=== PATIENT | male | born 1975 | race Two or more races ===

== ENCOUNTER 2020-03-11 14:51 | Emergency (ER) | payer OTHER, SELFPAY ==
--- NOTE | 2020-03-11 | XR_ITS ---
EXAMINATION: XR ANKLE, RIGHT CLINICAL INFORMATION: Injury right ankle, pain COMPARISON: None TECHNIQUE: AP, lateral, and mortise views of the right ankle. FINDINGS: The malleoli are intact and the ankle mortise is symmetric. There is no dislocation or destructive process. The AP view shows faint osseous density adjacent to the lateral talar neck which of uncertain chronicity. Possibility of acute avulsion cannot be excluded. The talus is otherwise unremarkable. The subtalar joint is normal. There is moderate posterior calcaneal spur and some minor spurring at the articulation between the navicular and the cuneiforms. XR/XR ankle RT 2V IMPRESSION: 1. Malleoli are intact. No dislocation. 2. Faint density adjacent to lateral talar neck on one view of uncertain chronicity. Possibility of acute avulsion cannot be completely excluded and correlation with patient's symptoms and clinical exam is recommended.
[2020-03-11 15:48] VITALS: BP 146/86; PULSE 84; RESP 16; TEMP 37.4; O2SAT 98; BMI 28.5
--- NOTE | 2020-03-11 15:54 | ED.LOWEXIN ---
HPI - Extremity Injury (Lower) General Chief Complaint: Extremity Injury, Lower Stated Complaint: rt ankle injury - fall Time Seen by Provider: 03/11/20 15:54 Source: patient Mode of arrival: ambulatory Limitations: no limitations History of Present Illness HPI Narrative: 44 y/o male presenting with right ankle pain x1 day. He reports his dog knocked him over and his ankle went outward. He has immediate pain and swelling. He is able to walk but with a limp. He denies other injuries. MD complaint: ankle injury Injury: Right: ankle and foot Type of Injury: eversion Place: home Severity: severe Severity scale (1-10): 8 Relieving factors: nothing Exacerbating factors: weight bearing, movement and palpation Context: fall and walking Associated symptoms: swelling and able to partially bear weight Other symptoms: none Treatments prior to arrival: NSAIDS Related Data Previous Rx's Medication Instructions Recorded methylprednisolone 4 mg tablets in See Rx Instructions PO PER PKG DIR 01/10/20 a dose pack #21 ea hydrocodone-acetaminophen [[place]] 1 tab PO Q6H PRN #10 tab 03/11/20 ibuprofen 600 mg PO Q8H PRN #20 tab 03/11/20 Allergies Allergy/AdvReac Type Severity Reaction Status Date / Time azithromycin [From ZITHROMAX] Allergy Intermediate HIVES Unverified 12/14/19 16:09 losartan [LOSARTAN] Allergy Intermediate RASH Unverified 12/14/19 16:09 penicillin V Allergy Unknown Verified 08/28/19 00:00 Penicillins [PENICILLINS] Allergy Unknown CHILDHOOD Unverified 12/14/19 16:09 REACTION vancomycin Allergy Unknown rash Verified 01/31/13 00:00 Losartan ARBs Allergy Unknown Rash Uncoded 08/28/19 00:00 PCN Allergy Unknown ? Uncoded 01/31/13 00:00 Review of Systems Review of Systems: Constitutional: No Fever, No Chills Cardiovascular: No Chest Pain, No SOB Respiratory: No Cough, No Sputum Gastrointestinal: No Nausea, No Vomiting, No abdominal Pain Musculoskeletal: + joint pain, No Myalgias Skin: No Skin Lesions, No rash Neuro: + Weakness, No Numbness, No Dizziness Heme/Lymph: No Bruising PMFSH Past Medical History Attestation statement: The following information was validated with the patient. Medical History HTN (hypertension) Surgical History (Updated 03/11/20 @ 15:50 by Verito Pratt) H/O inguinal hernia repair Social History Social History Advance Directives: No Advance Directives Information Provided: No Physical Exam Vital Signs: Vital Signs: Last Vital Signs Temp 99.3 F 03/11/20 15:48 Pulse 84 03/11/20 15:48 Resp 16 03/11/20 15:48 BP 146/86 H 03/11/20 15:48 Pulse Ox 98 03/11/20 15:48 Body Mass Index 28.5 Appearance: Alert. Oriented X3. No acute distress. HEENT: normal inspection CVS: Normal heart rate and rhythm. Pulses normal. Respiratory: No respiratory distress. Skin: Skin warm and dry. Normal skin color. Normal skin turgor. No rashes. Extremities: right ankle and upper foot with swelling, no ecchymosis or deformity. Tenderness to lateral malleolus and proximal lateral tarsals. weak plantar flexion and dorsiflexion due to pain. NV intact distally. Course Course Course Narrative: 44 yo male presenting with right ankle and foot pain after fall yesterday. Initial XR shows 1. Malleoli are intact. No dislocation. 2. Faint density adjacent to lateral talar neck on one view of uncertain chronicity. Possibility of acute avulsion cannot be completely excluded and correlation with patient's symptoms and clinical exam is recommended. Additional images to be obtained with foot XR as well. Reevaluation(s) Reevaluation #1: XR foot are normal. Will place in posterior short leg splint until patient can be evaluated by orthopedics. NWB status discussed with patient. Discharge Plan Discharge Clinical Impression: Avulsion fracture of ankle Qualifiers: Encounter type: initial encounter Fracture type: closed Laterality: right Qualified Code(s): S82.891A - Other fracture of right lower leg, initial encounter for closed fracture Patient Disposition: Home, Self-Care Instructions: Avulsion Fracture (ED) Additional Instructions: Your x-ray today showed an avulsion fracture, which is when a torn ligament pulls off a small part of the bone. You were placed in splint and should not put any weight on your foot until you are evaluated by Orthopedics. Elevated your leg when possible to help with swelling and pain. Take prescribed medication as needed for pain. Prescriptions: New ibuprofen 600 mg tablet 600 mg PO Q8H PRN (Reason: pain) Qty: 20 RF: 0 hydrocodone-acetaminophen [[place]] 5-325 mg tablet 1 tab PO Q6H PRN (Reason: pain) Qty: 10 RF: 0 No Action methylprednisolone [Medrol (Michael)] 4 mg tablets,dose pack See Rx Instructions PO PER PKG DIR Qty: 21 RF: 0 Referrals: Mayito Schumacher MD [Physician] - 2 days (avulsion fx ankle ) Stand Alone Forms: Work/School Release
--- NOTE | 2020-03-11 16:44 | XR_ITS ---
EXAMINATION: RIGHT FOOT 3 VIEWS CLINICAL INFORMATION: Pain following injury. COMPARISON: None. TECHNIQUE: AP, lateral, oblique views of the right foot were obtained. FINDINGS: There are no fractures or dislocations. There is no significant soft tissue swelling. No ankle joint effusion is identified. XR/XR foot RT min 3V IMPRESSION: Unremarkable right foot radiographs.
[2020-03-11] MEDS: oxyCODONE HCl Immed Release 5 MG TABLET PO (17:05)
[2020-03-11] MEDS: Ibuprofen 600 MG TABLET PO (17:05)
[2020-03-11] MEDS: Acetaminophen 325 MG TABLET 975 MG PO (17:06)
--- NOTE | 2020-03-11 18:07 | PC.NURSE ---
PLAN POSTERIOR SHORT LEG SPLINT AND CRUTCHES THEN DISCHARGE.
--- NOTE | 2020-03-11 18:25 | PC.NURSE ---
RIGHT POSTERIOR SHORT LEG SPLINT APPLIED.
== END 2020-03-11 18:20 | disposition home or self-care (01) ==
PROVIDERS: Emergency Provider Emergency Medicine; PCP Internal Medicine
DX: S92.114A Nondisplaced fracture of neck of right talus, initial encounter for closed fracture (principal); W54.1XXA Struck by dog, initial encounter; Y93.89 Activity, other specified; Y92.019 Unspecified place in single-family (private) house as the place of occurrence of the external cause; Y99.9 Unspecified external cause status
CPT/HCPCS: 29515; 73600; 73630; 99283; 99284

== ENCOUNTER → 2020-03-12 13:30 | Outpatient (BNVA) | payer OTHER, BC, SELFPAY | PROVIDERS: PCP Internal Medicine; Visit Provider Physician Assistant | DX: Z76.89 Persons encountering health services in other specified circumstances (principal) ==

== ENCOUNTER 2020-03-18 04:56 | Emergency (ER) | payer BC, SELFPAY ==
[2020-03-18 04:58] VITALS: BP 167/80; PULSE 105; RESP 20; TEMP 36.6; O2SAT 96; BMI 28.5
--- NOTE | 2020-03-18 05:16 | ED_ITS ---
HPI - Male Genitourinary General Chief complaint: Urogenital-Male Stated complaint: Personal Time Seen by Provider: 03/18/20 05:16 Source: patient Mode of arrival: ambulatory Limitations: no limitations History of Present Illness HPI Narrative: Patient had a small boil on scrotum which he popped 2 days ago now increasing swelling of the scrotum patient has similar boil on same location for long time off and on patient denies any fever no penile discharge no history of MRSA Related Data Home Medications Medication Instructions Recorded Confirmed triamcinolone acetonide 1 appl TOPICAL BID 03/18/20 03/18/20 Previous Rx's Medication Instructions Recorded methylprednisolone 4 mg tablets in See Rx Instructions PO PER PKG DIR 01/10/20 a dose pack #21 ea hydrocodone-acetaminophen [[place]] 1 tab PO Q6H PRN #10 tab 03/11/20 ibuprofen 600 mg PO Q8H PRN #20 tab 03/11/20 cephalexin [Keflex] 500 mg PO QID 10 Days #40 cap 03/18/20 doxycycline hyclate 100 mg PO BID #20 cap 03/18/20 ibuprofen 600 mg PO Q6H PRN #20 tab 03/18/20 Allergies Allergy/AdvReac Type Severity Reaction Status Date / Time azithromycin [From ZITHROMAX] Allergy Intermediate HIVES Verified 03/18/20 04:58 losartan [LOSARTAN] Allergy Intermediate RASH Verified 03/18/20 04:58 penicillin V Allergy Unknown Rash Verified 03/18/20 04:58 Penicillins [PENICILLINS] Allergy Unknown CHILDHOOD Verified 03/18/20 04:58 REACTION vancomycin Allergy Unknown rash Verified 03/18/20 04:58 Losartan ARBs Allergy Unknown Rash Uncoded 08/28/19 00:00 PCN Allergy Unknown ? 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 Physical Exam Vital Signs: Vital Signs: Last Vital Signs Temp 98 F 03/18/20 04:58 Pulse 105 H 03/18/20 04:58 Resp 20 03/18/20 04:58 BP 167/80 H 03/18/20 04:58 Pulse Ox 96 03/18/20 04:58 Body Mass Index 28.5 Const: General: cooperative, healthy appearing and in distress mild HENMT: Ears: hearing grossly normal bilaterally : Scrotum: erythematous and testes descended bilaterally Skin: Other: 2 x 3 cm Abscess left scrotal area at the upper and with the duration and cellulitis of the scrotal wall no open wound testicles are normal nontender Procedures Abscess I/D Site: scrotum Side (if applicable): left Local Anesthetic: lidocaine 2% Amount of anesthesia used (mL): 4 Technique: incised with blade Amount of fluid expressed (mL): 0 Sent for culture/gram staining?: No Irrigation: No Packing used?: none MDM - Male Genitourinary MDM Narrative Medical decision making narrative: Patient with chronic abscess left upper scrotal area with surrounding cellulitis I and D was tried but no pus came out will give him antibiotics advised to follow with urologist for cyst removal Discharge Plan Discharge Clinical Impression: Abscess of scrotal wall Patient Disposition: Home, Self-Care Instructions: Abscess Incision and Drainage (DC) Additional Instructions: Local care as advised. Take antibiotic as prescribed. Follow-up with urologist for further care Prescriptions: New doxycycline hyclate 100 mg capsule 100 mg PO BID Qty: 20 RF: 0 cephalexin [Keflex] 500 mg capsule 500 mg PO QID 10 Days Qty: 40 RF: 0 ibuprofen 600 mg tablet 600 mg PO Q6H PRN (Reason: pain) Qty: 20 RF: 0 No Action methylprednisolone [Medrol (Michael)] 4 mg tablets,dose pack See Rx Instructions PO PER PKG DIR Qty: 21 RF: 0 ibuprofen 600 mg tablet 600 mg PO Q8H PRN (Reason: pain) Qty: 20 RF: 0 hydrocodone-acetaminophen [[place]] 5-325 mg tablet 1 tab PO Q6H PRN (Reason: pain) Qty: 10 RF: 0 triamcinolone acetonide 0.5 % cream 1 appl topical BID RF: 0 Referrals: Swierzewski,Luis M III, MD [Physician] - 3 days (Scrotal abscess) Interventions: ED Discharge Assessment Last Done: 03/18/20 05:36 Discharge Date/Time: 03/18/20 05:40
[2020-03-18] MEDS: Lidocaine HCl 2 % MPF 5 ML VIAL INFILTRATI (05:24)
[2020-03-18] MEDS: cephALEXin 500 MG CAPSULE PO (05:25)
--- NOTE | 2020-03-18 05:40 | PC.NURSE ---
i &D scrotal wall cyst. No drainage. Patient referred to urologist for further follow up. Patient tolerated the procedure well. Medicated with abx as noted on emar.
== END 2020-03-18 05:40 | disposition home or self-care (01) ==
PROVIDERS: Emergency Provider Internal Medicine; PCP Internal Medicine
DX: N49.2 Inflammatory disorders of scrotum (principal); I10 Essential (primary) hypertension; F17.210 Nicotine dependence, cigarettes, uncomplicated
CPT/HCPCS: 55100; 99283

== ENCOUNTER → 2020-03-20 09:08 | Outpatient (BNVA) | payer BC, SELFPAY | PROVIDERS: PCP Internal Medicine; Visit Provider Urology | DX: Z76.89 Persons encountering health services in other specified circumstances (principal) ==

== ENCOUNTER → 2020-03-27 09:48 | Outpatient (BNVA) | payer BC, SELFPAY | PROVIDERS: PCP Internal Medicine; Visit Provider Urology | DX: N49.2 Inflammatory disorders of scrotum (principal) | CPT/HCPCS: 81002 ==

== ENCOUNTER 2020-04-02 13:37 | Outpatient (REF) | payer BC, SELFPAY | END 2020-04-02 13:38 | disposition home or self-care (01) | LOC: HO.HOSX 13:37 | PROVIDERS: Visit Provider Physician Assistant | DX: Z13.89 Encounter for screening for other disorder (principal) ==

== ENCOUNTER 2020-06-07 14:09 | Emergency (ER) | payer BC, SELFPAY ==
--- NOTE | ~2020-06-07 | XR_ITS ---
EXAMINATION: XR FOOT, RIGHT CLINICAL INFORMATION: Foot injury COMPARISON: Right foot series February 2020 TECHNIQUE: AP, lateral, and oblique views of the right foot. FINDINGS: There is soft tissue swelling noted along the dorsal aspect of the foot. The bones joints and soft tissues are otherwise normal. XR/XR foot RT min 3V IMPRESSION: Normal right foot.
[2020-06-07 14:17] VITALS: BP 142/71; PULSE 96; RESP 18; TEMP 36.6; O2SAT 96; BMI 28.5
--- NOTE | 2020-06-07 14:51 | ED.LOWEXIN ---
HPI - Extremity Injury (Lower) General Chief Complaint: Extremity Injury, Lower Stated Complaint: foot injury Time Seen by Provider: 06/07/20 14:24 Source: patient Mode of arrival: ambulatory Limitations: no limitations History of Present Illness HPI Narrative: 44-year-old male with a past medical history of hypertension presenting to the ED with complaints of pain to his right foot after he dropped a weight a few days ago worsening pain today 12/06. Reports he also had an abscess and when the weight fell on it it popped the abscess. Denies any other symptoms complaints or concerns at this time. MD complaint: foot injury Onset (ago): day(s) (A few days ago worse today) Type of Injury: blunt Place: home Severity: severe Severity scale (1-10): 9 Relieving factors: nothing Exacerbating factors: weight bearing, movement and palpation Context: direct blow Associated symptoms: swelling and ambulatory Other symptoms: none Treatments prior to arrival: other (Multiple [id number] medication no symptomatic relief) Related Data Home Medications Medication Instructions Recorded Confirmed triamcinolone acetonide 1 appl TOPICAL BID 03/18/20 03/27/20 Previous Rx's Medication Instructions Recorded methylprednisolone 4 mg tablets in See Rx Instructions PO PER PKG DIR 01/10/20 a dose pack #21 ea hydrocodone-acetaminophen [[place]] 1 tab PO Q6H PRN #10 tab 03/11/20 ibuprofen 600 mg PO Q8H PRN #20 tab 03/11/20 cephalexin [Keflex] 500 mg PO QID 10 Days #40 cap 03/18/20 doxycycline hyclate 100 mg PO BID #20 cap 03/18/20 ibuprofen 600 mg PO Q6H PRN #20 tab 03/18/20 leg brace #1 ea 03/20/20 sulfamethoxazole 800 1 tab PO BID #30 tab 03/20/20 mg-trimethoprim 160 mg tablet diphenhydramine HCl [Benadryl 50 mg PO TID PRN #10 tab 06/07/20 Allergy] doxycycline hyclate 100 mg PO BID 10 Days #20 tab 06/07/20 ibuprofen 800 mg PO Q8H PRN #14 tab 06/07/20 oxycodone 5 mg PO BID PRN #14 tab 06/07/20 sulfamethoxazole-trimethoprim 1 tab PO BID 10 Days #20 tab 06/07/20 [Bactrim DS] Allergies Allergy/AdvReac Type Severity Reaction Status Date / Time azithromycin [From ZITHROMAX] Allergy Intermediate HIVES Verified 03/27/20 10:10 losartan [LOSARTAN] Allergy Intermediate RASH Verified 03/27/20 10:10 penicillin V Allergy Unknown Rash Verified 03/27/20 10:10 Penicillins [PENICILLINS] Allergy Unknown CHILDHOOD Verified 03/27/20 10:10 REACTION vancomycin Allergy Unknown rash Verified 03/27/20 10:10 Losartan ARBs Allergy Unknown Rash Uncoded 03/27/20 10:10 PCN Allergy Unknown ? Uncoded 03/27/20 10:10 Review of Systems Review of Systems: Constitutional : No fevers, no chills, no lethargy ENT/Mouth : No Ear Pain, No Nasal discharge/drainage Eyes: No Eye Pain, No Swelling, No Redness, No Foreign Body, No Vision Changes Cardiovascular : No Chest Pain, No SOB Respiratory : No Cough Gastrointestinal : No Nausea, No Vomiting, No abdominal Pain Genitourinary : No Dysuria, No Urinary Frequency, No Urinary Incontinence, No Urgency, No Flank Pain Musculoskeletal : + joint pain, No neck stiffness, No back pain/injury Skin : No lacerations Neuro : No unsteady gait, No Paresthesias, No Loss of Consciousness, No altered mental status, No Headache Yes all other systems are reviewed and are negative [facility] Past Medical History Attestation statement: The following information was validated with the patient. 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 Blood pressure normal. Heart rate normal. Respiration rate normal. Temperature normal. Oxygen saturation normal. Appearance: Alert. Oriented X3. No acute distress. Head: Normal external exam. Normocephalic. Atraumatic. Eyes: PERRLA. EOMI. Conjunctiva and sclera normal. Eyelids normal. ENT: Pharynx normal. Uvula midline. Moist mucous membranes. Neck: Normal inspection. Neck supple. FROM. No adenopathy. Thyroid Normal. No meningeal signs. No neck mass noted. CVS: Normal heart rate and rhythm. Heart sound normal. Pulses normal throughout. Respiratory: No respiratory distress. Painless inspiration. Back: No CVA tenderness. Full range of motion noted. Skin: Skin warm and dry. Normal skin color. Normal skin turgor. No rashes/lesions/lacerations noted. Extremities: To right foot dorsal aspect patient has moderate soft tissue swelling with ecchymosis and erythema to the metatarsal aspect of the foot. Patient also noted to have a wound to the mid to distal aspect of the foot with warm to touch, erythema consistent with cellulitis infection. No fluctuance or foreign bodies noted. See below for image. No lower extremity edema. No calf tenderness noted. Extremities exhibit normal range of motion. Extremities nontender. Neuro: Oriented X 3. No motor deficit. No sensory deficit. Reflexes normal. Course Course Course Narrative: 44-year-old male past medical history of hypertension presenting to the ED after he dropped weight on his right foot and since then has been having moderate pain able to ambulate although pain is worse. On exam patient noted to have moderate soft tissue swelling, ecchymosis and erythema along with warm to touch consistent with sprain and cellulitis infection from wound. Not consistent with osteomyelitis. X-ray obtained of right foot negative for any acute processes including fractures. Will DC home with a postop shoe and symptomatic treatment along with antibiotics and instructions return if any new or worsening symptoms to follow up with primary care provider. Patient understands agrees the plan. MDM - Extremity Injury (Lower) Medical Records Attestation: I reviewed the patient's medical records. Imaging Data Right foot x-ray: Attestation: I personally reviewed and interpreted this imaging study as follows: Radiologist's impression: FINDINGS: There is soft tissue swelling noted along the dorsal aspect of the foot. The bones joints and soft tissues are otherwise normal. XR/XR foot RT min 3V IMPRESSION: Normal right foot. Discharge Plan Discharge Clinical Impression: Cellulitis of foot, right, Sprain of foot, right, Traumatic ecchymosis of right foot, Open wound of right foot Patient Disposition: Home, Self-Care Instructions: Cellulitis (ED), Ecchymosis (ED) Prescriptions: New doxycycline hyclate 100 mg tablet 100 mg PO BID 10 Days Qty: 20 RF: 0 sulfamethoxazole-trimethoprim [Bactrim DS] 800-160 mg tablet 1 tab PO BID 10 Days Qty: 20 RF: 0 oxycodone 5 mg tablet 5 mg PO BID PRN (Reason: pain) Qty: 14 RF: 0 diphenhydramine HCl [Benadryl Allergy] 25 mg tablet 50 mg PO TID PRN (Reason: allergic reaction) Qty: 10 RF: 0 ibuprofen 800 mg tablet 800 mg PO Q8H PRN (Reason: pain) Qty: 14 RF: 0 No Action methylprednisolone [Medrol (Michael)] 4 mg tablets,dose pack See Rx Instructions PO PER PKG DIR Qty: 21 RF: 0 ibuprofen 600 mg tablet 600 mg PO Q8H PRN (Reason: pain) Qty: 20 RF: 0 hydrocodone-acetaminophen [[place]] 5-325 mg tablet 1 tab PO Q6H PRN (Reason: pain) Qty: 10 RF: 0 doxycycline hyclate 100 mg capsule 100 mg PO BID Qty: 20 RF: 0 cephalexin [Keflex] 500 mg capsule 500 mg PO QID 10 Days Qty: 40 RF: 0 ibuprofen 600 mg tablet 600 mg PO Q6H PRN (Reason: pain) Qty: 20 RF: 0 triamcinolone acetonide 0.5 % cream 1 appl topical BID RF: 0 (DME) Ankle Brace Misc See Rx Instructions .MEDSUPPLY Qty: 1 RF: 0 sulfamethoxazole-trimethoprim [Bactrim DS] 800-160 mg tablet 1 tab PO BID Qty: 30 RF: 1 Referrals: Reggie Talamantes MD [Primary Care Provider] - 2 days Print Language: Hungarian
== END 2020-06-07 15:12 | disposition home or self-care (01) ==
PROVIDERS: Emergency Provider Emergency Medicine Emergency Medical Services; PCP Internal Medicine
DX: L03.115 Cellulitis of right lower limb (principal); S93.601A Unspecified sprain of right foot, initial encounter; S91.301A Unspecified open wound, right foot, initial encounter; S90.31XA Contusion of right foot, initial encounter; W20.8XXA Other cause of strike by thrown, projected or falling object, initial encounter; I10 Essential (primary) hypertension; Y93.B3 Activity, free weights; Y92.019 Unspecified place in single-family (private) house as the place of occurrence of the external cause; Y99.9 Unspecified external cause status
CPT/HCPCS: 73630; 99283

== ENCOUNTER 2020-06-16 19:38 | Emergency (ER) | payer BC, SELFPAY ==
[2020-06-16 21:18] VITALS: BP 146/87; PULSE 87; RESP 16; TEMP 36.7; O2SAT 97; BMI 29.1
--- NOTE | 2020-06-16 21:53 | ED.GENADULT ---
HPI - General Adult General Chief complaint: Allergic Reaction Stated complaint: MED REACTION Time Seen by Provider: 06/16/20 21:42 Source: patient Mode of arrival: ambulatory Limitations: no limitations History of Present Illness HPI narrative: Patient comes emergency room complaining of a rash around his neck and hands. Patient states that he has been on doxycycline and Bactrim since 06/08/2019 1st. For a foot infection. Patient states the foot is healing well. However, he still has an area that it is healing. Patient states that he is compliant with his medication, but today he was working out in the sun, and he got a very itchy rash in the sun-exposed areas of his body including face, scalp, neck and hands. Patient states he has been noticing for the last few days ago when he gets exposed to son, he has this intermittent rash. Patient denies shortness of breath, no wheezing, no foreign body sensation in his throat, does not have rash anywhere else in his body Related Data Home Medications Medication Instructions Recorded Confirmed triamcinolone acetonide 1 appl TOPICAL BID 03/18/20 03/27/20 Previous Rx's Medication Instructions Recorded methylprednisolone 4 mg tablets in See Rx Instructions PO PER PKG DIR 01/10/20 a dose pack #21 ea hydrocodone-acetaminophen [[place]] 1 tab PO Q6H PRN #10 tab 03/11/20 ibuprofen 600 mg PO Q8H PRN #20 tab 03/11/20 cephalexin [Keflex] 500 mg PO QID 10 Days #40 cap 03/18/20 doxycycline hyclate 100 mg PO BID #20 cap 03/18/20 ibuprofen 600 mg PO Q6H PRN #20 tab 03/18/20 leg brace #1 ea 03/20/20 sulfamethoxazole 800 1 tab PO BID #30 tab 03/20/20 mg-trimethoprim 160 mg tablet diphenhydramine HCl [Benadryl 50 mg PO TID PRN #10 tab 06/07/20 Allergy] doxycycline hyclate 100 mg PO BID 10 Days #20 tab 06/07/20 ibuprofen 800 mg PO Q8H PRN #14 tab 06/07/20 oxycodone 5 mg PO BID PRN #14 tab 06/07/20 sulfamethoxazole-trimethoprim 1 tab PO BID 10 Days #20 tab 06/07/20 [Bactrim DS] clindamycin HCl 300 mg PO BID 7 Days #14 cap 06/16/20 Allergies Allergy/AdvReac Type Severity Reaction Status Date / Time azithromycin [From ZITHROMAX] Allergy Intermediate HIVES Verified 06/16/20 21:22 losartan [LOSARTAN] Allergy Intermediate RASH Verified 06/16/20 21:22 penicillin V Allergy Unknown Rash Verified 06/16/20 21:22 Penicillins [PENICILLINS] Allergy Unknown CHILDHOOD Verified 06/16/20 21:22 REACTION vancomycin Allergy Unknown rash Verified 06/16/20 21:22 Losartan ARBs Allergy Unknown Rash Uncoded 03/27/20 10:10 PCN Allergy Unknown ? Uncoded 03/27/20 10:10 Review of Systems Review of Systems: Constitutional : No Weight loss, No Fever, No Chills, No Night Sweats, No Fatigue, No Malaise ENT/Mouth : No Hearing loss, No Ear Pain, No Nasal Congestion, No Sinus Pain, No Hoarseness, No sore throat, No Rhinorrhea, No Swallowing Difficulty Eyes: No Eye Pain, No Swelling, No Redness, No Foreign Body, No Discharge, No Vision Changes Cardiovascular : No Chest Pain, No SOB, No Dyspnea on Exertion, No Orthopnea, No Edema, No Palpitations Respiratory : No Cough, No Sputum, No Wheezing, No Smoke Exposure, No Dyspnea Gastrointestinal : No Nausea, No Vomiting, No Diarrhea, No Constipation, No abdominal Pain, No Hematochezia, No Melena Genitourinary : no irregular bleeding, No Dysuria, No Urinary Frequency, No Hematuria, No Urinary Incontinence, No Urgency, No Flank Pain, No Urinary Flow Changes, No Hesitancy Musculoskeletal : No joint pain, No Myalgias, No Joint Swelling Skin : Complaining of itchy rash in sun-exposed areas, and a healing cyst/cellulitis in the right foot Neuro : No Weakness, No Numbness, No Paresthesias, No Loss of Consciousness, No Dizziness, No Headache Psych : No Anxiety/Panic, No Depression, No SI/HI/AH/VH, No Social Issues, Heme/Lymph: No Bruising, No Bleeding,No Lymphadenopathy Endocrine : No Polyuria, No Polydipsia, No Temperature Intolerance PMFSH Past Medical History Medical History Cellulitis of scrotum HTN (hypertension) Scrotal wall abscess Surgical History H/O inguinal hernia repair Family History Family History Maternal Grandfather Stroke Maternal Grandmother Stroke Social History Social History Alcohol intake: current Alcohol intake frequency: a few times a week Smoking Status: Current every day smoker Tobacco Type: Cigarette Advance Directives: No Advance Directives Information Provided: No 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 Oriented X3. No acute distress. Eyes: Pupils equal, round and reactive to light. ENT: Pharynx normal. Neck: Normal inspection. Neck supple. No lymph nodes noted. No crepitus CVS: Normal heart rate and rhythm. Pulses normal. Normal S1 and S2 Respiratory: No respiratory distress. Breath sounds normal. No Wheezing. No rales Abdomen: Soft and nontender. No rigidity. No distention. good BS x4 Skin: Skin warm and dry. Patient has hives in the scalp, face, neck and hands (sun-exposed areas). Right foot seems to be healing, he has a patch approximately 2.5 cm x 2.5 cm of an ulcer on the dorsum of the right foot, seems to be healing. Extremities: No lower extremity edema. No lower extremity edema. No Lacerations. No Rash Neuro: Oriented X 3. No motor deficit. No sensory deficit. Moving all extermities. No slurred speech. Course Course Course Narrative: I discussed with the patient that this is unlikely to be an allergic reaction to the antibiotics. However it is likely hypersensitivity reaction from the antibiotics and the sun. Patient was given a dose of prednisone and Benadryl. His will be driving. In the meantime, we will switch the patient's antibiotics, advised to stay out of the sun. Patient can follow-up with his primary care physician, he may need a scratch test to be tested for allergic reactions to antibiotics. Patient is known to be allergic to azithromycin, penicillins, now possibly doxycycline versus Bactrim. Allergy tested recommended Discharge Plan Discharge Clinical Impression: Hypersensitivity Qualifiers: Encounter type: initial encounter Qualified Code(s): T78.40XA - Allergy, unspecified, initial encounter Cellulitis Qualifiers: Site of cellulitis: extremity Site of cellulitis of extremity: lower extremity Laterality: right Qualified Code(s): L03.115 - Cellulitis of right lower limb Patient Disposition: Home, Self-Care Instructions: Acute Rash (ED) Additional Instructions: Discontinue taking Bactrim and doxycycline. Start taking the new medication tomorrow. Please follow-up with your primary care physician tomorrow. If you have any worsening or new symptoms, please return to the emergency room or call 911 Prescriptions: New clindamycin HCl 300 mg capsule 300 mg PO BID 7 Days Qty: 14 RF: 0 No Action methylprednisolone [Medrol (Michael)] 4 mg tablets,dose pack See Rx Instructions PO PER PKG DIR Qty: 21 RF: 0 ibuprofen 600 mg tablet 600 mg PO Q8H PRN (Reason: pain) Qty: 20 RF: 0 hydrocodone-acetaminophen [[place]] 5-325 mg tablet 1 tab PO Q6H PRN (Reason: pain) Qty: 10 RF: 0 doxycycline hyclate 100 mg capsule 100 mg PO BID Qty: 20 RF: 0 cephalexin [Keflex] 500 mg capsule 500 mg PO QID 10 Days Qty: 40 RF: 0 ibuprofen 600 mg tablet 600 mg PO Q6H PRN (Reason: pain) Qty: 20 RF: 0 triamcinolone acetonide 0.5 % cream 1 appl topical BID RF: 0 doxycycline hyclate 100 mg tablet 100 mg PO BID 10 Days Qty: 20 RF: 0 sulfamethoxazole-trimethoprim [Bactrim DS] 800-160 mg tablet 1 tab PO BID 10 Days Qty: 20 RF: 0 oxycodone 5 mg tablet 5 mg PO BID PRN (Reason: pain) Qty: 14 RF: 0 diphenhydramine HCl [Benadryl Allergy] 25 mg tablet 50 mg PO TID PRN (Reason: allergic reaction) Qty: 10 RF: 0 ibuprofen 800 mg tablet 800 mg PO Q8H PRN (Reason: pain) Qty: 14 RF: 0 (DME) Ankle Brace Misc See Rx Instructions .MEDSUPPLY Qty: 1 RF: 0 sulfamethoxazole-trimethoprim [Bactrim DS] 800-160 mg tablet 1 tab PO BID Qty: 30 RF: 1
[2020-06-16] MEDS: predniSONE 20 MG TABLET 60 MG PO (22:29)
[2020-06-16] MEDS: diphenhydrAMINE HCL 25 MG TABLET 50 MG PO (22:29)
== END 2020-06-16 22:38 | disposition home or self-care (01) ==
PROVIDERS: Emergency Provider Emergency Medicine; PCP Internal Medicine
DX: L27.0 Generalized skin eruption due to drugs and medicaments taken internally (principal); T36.4X5A Adverse effect of tetracyclines, initial encounter; Y92.017 Garden or yard in single-family (private) house as the place of occurrence of the external cause; L03.115 Cellulitis of right lower limb; I10 Essential (primary) hypertension
CPT/HCPCS: 99283; Q0163

== ENCOUNTER 2021-08-16 09:39 | Emergency (ER) | payer BC, SELFPAY ==
[2021-08-16 10:35] VITALS: BP 152/93; PULSE 86; RESP 18; TEMP 36.6; O2SAT 98; BMI 29.1
--- NOTE | 2021-08-16 10:45 | ED_ITS ---
HPI - Extremity Problem General Chief complaint: Extremity Injury, Upper Stated complaint: cyst on L elbow Time Seen by Provider: 08/16/21 10:42 Source: patient Mode of arrival: ambulatory Limitations: no limitations History of Present Illness HPI Narrative: 38-year-old male presents to the ER with left elbow swelling after some mild trauma 2 weeks ago. He reports after he banged his elbow on something he develo ped states a significant swollen area to his left elbow he thinks is a cyst. He wants it removed. He has full range of motion of the elbow without any redness or overlying skin changes. No fever or chills. MD Complaint: joint swelling Onset (ago): week(s) (2) Pain Consistency: constant Location: left and elbow Severity scale (1-10): 2 Quality: aching Radiation: none Relieving factors: nothing Exacerbating factors: palpation Associated symptoms: denies other symptoms Related Data Home Medications Medication Instructions Recorded Confirmed No Known Home Meds 08/16/21 Allergies Allergy/AdvReac Type Severity Reaction Status Date / Time azithromycin [From ZITHROMAX] Allergy Intermediate HIVES Verified 08/16/21 09:13 losartan [LOSARTAN] Allergy Intermediate RASH Verified 08/16/21 09:13 penicillin V Allergy Unknown Rash Verified 08/16/21 09:13 Penicillins [PENICILLINS] Allergy Unknown CHILDHOOD Verified 08/16/21 09:13 REACTION vancomycin Allergy Unknown rash Verified 08/16/21 09:13 Losartan ARBs Allergy Unknown Rash Uncoded 08/16/21 09:13 PCN Allergy Unknown ? Uncoded 08/16/21 09:13 Review of Systems Review of Systems: Constitutional: No Fever, No Chills Cardiovascular: No Chest Pain, No SOB Gastrointestinal: No Nausea, No Vomiting, No abdominal Pain Musculoskeletal: +joint pain, No Myalgias, +Joint swelling Skin: No Skin Lesions, No rash Neuro: No Weakness, No Numbness Heme/Lymph: No Bruising, No Lymphadenopathy PMFSH Past Medical History Medical History Cellulitis of scrotum HTN (hypertension) Scrotal wall abscess Surgical History H/O inguinal hernia repair Family History Family History Maternal Grandfather Stroke Maternal Grandmother Stroke Social History Social History Alcohol intake: current Alcohol intake frequency: a few times a week Advance Directives: No Advance Directives Information Provided: No 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 Oriented X3. No acute distress. HEENT: normal inspection CVS: Normal heart rate and rhythm. Pulses normal. Respiratory: No respiratory distress. Skin: Skin warm and dry. Normal skin color. Normal skin turgor. No rashes. Extremities: Left elbow with a mod-large size swollen area off the olecranon, mass is round, soft, without fluctuance. Feels fluid-filled. No overlying skin changes, no erythema or warmth. Normal range of motion of the elbow. Neurovascularly intact distally. Neuro: Oriented X 3. No motor deficit. No sensory deficit. Course Course Course Narrative: 38-year-old male presents to the ER with left elbow swelling status post minor trauma 2 weeks ago. He is asking for drainage. He has no evidence of a septic joint. We discussed the risks and benefits of drainage (including infection and hemarthrosis) in the emergency room versus conservative management or following up with Orthopedics but patient is persistent on draining the fluid today. Reevaluation(s) Reevaluation #1: Patient tolerated procedure well, no complications, blood-tinged serosanguineous fluid was removed from the elbow, approximately 12 cc with resolution of the inflamed bursa. Area was wrapped with Juan C wrap for compression. He is feeling much better. He will follow-up with his PCP and Ortho. Procedures Bursa Procedures Time Out Performed: Yes Side of body: left Site of Procedure: olecranon bursa XRAY Obtained: none Antisepsis Used: Povidone-Iodine1% Fluid obtained (mL): 12 Fluid Type: bloody (serosanguinous with a blood tinge) Patient Tolerated Procedure: well and no complications Complications: none Discharge Plan Discharge Clinical Impression: Bursitis of elbow Patient Disposition: Home, Self-Care Instructions: Elbow Bursitis (ED) Additional Instructions: Wear the JUAN C wrap for compression. Elevate and use ice several times per day. Take ibuprofen 600 mg every 6-8 hours to help with swelling and pain. Follow up with Orthopedics - name and number below. If you develop worsening pain, swelling or develop redness, decreased range of motion or any other concerning symptoms call your doctor or come back to the ER for further evaluation. Prescriptions: No Action No Known Home Meds 0RF Referrals: Mayito Schumacher MD [Physician] - (left elbow bursitis) Interventions: ED Discharge Assessment Last Done: 08/16/21 11:14 Discharge Date/Time: 08/16/21 11:17
== END 2021-08-16 11:17 | disposition home or self-care (01) ==
PROVIDERS: Emergency Provider Emergency Medicine Emergency Medical Services; PCP Internal Medicine
DX: M70.32 Other bursitis of elbow, left elbow (principal)
CPT/HCPCS: 20610; 99283

== ENCOUNTER 2022-06-23 14:04 | Outpatient (REF) | payer BC, SELFPAY ==
[2022-06-23 14:14] LABS: MANUAL DIFF FLAG NO
[2022-06-23 14:30] LABS: Basophils Absolute Auto 0.1 X10*3/uL (0.0-0.2); Basophils Percent Auto 0.5 % (0-2); Eosinophils Absolute Auto 0.2 X10*3/uL (0.0-0.4); Eosinophils Percent Auto 1.5 % (0-4); Hematocrit 41.7 % (42.0-52.0); Hemoglobin 14.4 g/dl (14.0-18.0); Imm Gran Pct Auto 0.8 % (0.0-0.4); Lymphocytes Absolute Auto 1.4 X10*3/uL (1.2-4.9); Lymphocytes Percent Auto 10.8 % (20-40); Mean Corpuscular HGB Conc 34.5 g/dl (31.0-36.0); Mean Corpuscular Hemoglobin 31.3 pg (27.0-33.0); Mean Corpuscular Volume 90.7 fL (80.0-98.0); Mean Platelet Volume 9.6 fL (9.4-12.4); Monocytes Absolute Auto 0.9 X10*3/uL (0.1-1.2); Neutrophils Absolute Auto 10.4 x10*3/uL (2.0-8.3); Neutrophils Percent Auto 79.4 % (45-73); Platelet Count 319 X10*3/uL (160-400); Red Cell Distribution Width 12.7 % (11.0-16.0); White Blood Count 13.1 X10*3/uL (4.8-10.8)
[2022-06-23 17:28] LABS: Alanine Aminotransferase 23 U/L (0-40); Albumin Level 4.4 g/dL (3.5-5.0); Alkaline Phosphatase 76 U/L (39-117); Anion Gap 12 (12-20); Aspartate Amino Transferase 15 U/L (5-37); Bilirubin Total 0.3 mg/dL (0.0-1.0); Blood Urea Nitrogen 11 mg/dL (9-16); Calcium 9.5 mg/dL (8.4-10.2); Carbon Dioxide 30 mmol/L (22-29); Chloride 103 mmol/L (96-108); Cholesterol 119 mg/dL; Estimated Glomerular Filt Rate > 60; Glucose Fasting 90 mg/dL (60-99); HDL Cholesterol 38 mg/dL; LDL Cholesterol Calculated 62 mg/dl; Sodium 141 mmol/L (135-145); Total Protein 6.6 g/dL (6.5-8.0); Triglycerides 97 mg/dL
[2022-06-23 17:44] LABS: Thyroid Stimulating Hormone 0.67 uIU/mL (0.32-4.0)
== END 2022-06-23 14:05 | disposition home or self-care (01) ==
LOC: HO.LAB 14:04
PROVIDERS: PCP Internal Medicine; Visit Provider Internal Medicine
DX: E03.9 Hypothyroidism, unspecified (principal); E78.5 Hyperlipidemia, unspecified; N28.9 Disorder of kidney and ureter, unspecified; D64.9 Anemia, unspecified
CPT/HCPCS: 36415; 80053; 80061; 84443; 85025

== ENCOUNTER 2022-09-07 10:47 | Outpatient (REF) | payer BC, SELFPAY ==
--- NOTE | ~2022-09-07 | XR_ITS ---
EXAMINATION: XR KNEE, LEFT CLINICAL INFORMATION: Pain. COMPARISON: X-ray March 2011. TECHNIQUE: Two views of the left knee. FINDINGS: Bone alignment is normal. No fracture or dislocation. Joint spaces are normal. Small to moderate joint effusion. Osteophyte at the quadriceps tendon insertion. XR/XR knee LT 2V IMPRESSION: Mild degenerative changes.
== END 2022-09-07 10:48 | disposition home or self-care (01) ==
LOC: HO.XRAY 10:47
PROVIDERS: PCP Internal Medicine; Visit Provider Internal Medicine
DX: M25.562 Pain in left knee (principal)
CPT/HCPCS: 73560

== ENCOUNTER 2022-10-28 14:33 | Outpatient (AMB) | payer BC, SELFPAY ==
--- NOTE | 2022-10-28 14:39 | MHC.PC.OV ---
Vital Signs 10/28/22 14:41 Height 6 ft Weight 222 lb 8 oz BMI 30.2 BP 138/80 Blood Pressure Location Lt brachial Position Sitting Pulse 80 Pulse Source Pulse Oximeter Pulse Oximetry (%) 98 Oxygen Delivery Method Room Air Intake Visit Reasons: 30 day f/u Intake Note: Patient is here to follow up on HTN. Complain of discoloration on left foot Income Auditor Required: No Monomer Recovery Supervisor: Not Required per policy Accompanied by: Self / Same As Patient Allergies azithromycin [From ZITHROMAX] Allergy (Intermediate, Verified 10/28/22 14:40) HIVES losartan [LOSARTAN] Allergy (Intermediate, Verified 10/28/22 14:40) RASH penicillin V Allergy (Unknown, Verified 10/28/22 14:40) Rash Penicillins [PENICILLINS] Allergy (Unknown, Verified 10/28/22 14:40) CHILDHOOD REACTION vancomycin Allergy (Unknown, Verified 10/28/22 14:40) rash Losartan ARBs Allergy (Unknown, Uncoded 10/28/22 14:40) Rash PCN Allergy (Unknown, Uncoded 10/28/22 14:40) ? Medication List - Last Reconciled 10/28/22 by Reggie Talamantes MD lisinopril 10 mg PO DAILY Tobacco use date assessed: 10/28/22 HPI 30 day f/u HPI Details HTN on Rx; doing well on rx PFSH Medical History Cellulitis of scrotum HTN (hypertension) Scrotal wall abscess Surgical History H/O inguinal hernia repair Family History Maternal Grandfather Stroke Maternal Grandmother Stroke Social History Housing: House Alcohol intake: current Alcohol intake frequency: a few times a week Patient Tobacco Use Status: Current everyday Tobacco user Tobacco use type: Cigarette Cigarette Packs Per Day: 1 Cigarettes Per Day: 20 e-Cigarette/Vaping Use: Never Used Second Hand Smoke Exposure: No service: No Current occupational status: employed 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 Allen Geiger, Marsha Cuellar, Tony Son and colleagues, with an educational romeo from [email or web address]. Review of Systems Const Denies chills, Denies headache(s) and Denies weight loss ENT Denies headache(s) Card Denies chest pain, Denies syncope, Denies irregular heart rhythm and Denies dyspnea Resp Denies chest congestion, Denies cough and Denies dyspnea GI Denies abdominal pain, Denies change in stool character, Denies nausea and Denies vomiting Musc Denies deformity and Denies joint swelling Neuro Denies syncope and Denies headache(s) Physical exam (Primary Care) Vital Signs: Last Vital Signs Pulse 80 10/28/22 14:41 BP 138/80 10/28/22 14:41 Pulse Ox 98 10/28/22 14:41 Oxygen Delivery Method Room Air 10/28/22 14:41 BMI result Body Mass Index 30.2 Tobacco/Smoking Status: Tobacco use Status Tobacco use date assessed 10/28/22 10/28/22 14:44 Patient Tobacco Use Status Current everyday Tobacco 10/28/22 14:44 Tobacco use type Cigarette 10/28/22 14:44 e-Cigarette/Vaping Use Never Used 10/28/22 14:44 Thrive Assessment: Date of Thrive Assessment Date Thrive assessed 06/23/22 10/28/22 14:44 Const General: cooperative, comfortable and no acute distress Resp Effort & Inspection: normal respiratory effort Auscultation: clear to auscultation bilaterally Percussion: percussion normal Cardio Jugular venous distension: no JVD Rate: regular rate Rhythm: regular rhythm GI Inspection: Yes normal to inspection Assessment and Plan Assessment & Plan (1) Hypertension: Code(s): I10 - Essential (primary) hypertension Plan: stable; same rx Orders: Referrals Gastroenterology Referral Z12.11 - Encounter for screening for malignant neoplasm of colon Orthopedics Referral M25.569 - Pain in unspecified knee Coding Level of Care Code Est Pt Level 3 (74515) Diagnoses Hypertension I10
[2022-10-28 14:41] VITALS: BP 138/80; PULSE 80; O2SAT 98; BMI 30.2
== END 2022-10-28 14:59 | disposition home or self-care (01) ==
PROVIDERS: PCP Internal Medicine; Visit Provider Internal Medicine
DX: I10 Essential (primary) hypertension (principal)
CPT/HCPCS: 99213

== ENCOUNTER 2022-11-23 12:03 | Outpatient (REF) | payer BC, SELFPAY | END 2022-11-23 12:04 | disposition home or self-care (01) | LOC: HO.HOSX 12:03 | PROVIDERS: Visit Provider Orthopaedic Surgery | DX: Z13.89 Encounter for screening for other disorder (principal) ==

== ENCOUNTER 2023-01-26 13:35 | Outpatient (AMB) | payer BC, SELFPAY ==
[2023-01-26 13:36] VITALS: BP 170/90; PULSE 85; O2SAT 98; BMI 31.6
--- NOTE | 2023-01-26 13:37 | MHC.PC.OV ---
Vital Signs 01/26/23 13:36 Height 6 ft Weight 233 lb BMI 31.6 BP 170/90 H Blood Pressure Location Lt brachial Position Sitting Pulse 85 Pulse Source Pulse Oximeter Pulse Oximetry (%) 98 Oxygen Delivery Method Room Air Intake Visit Reasons: Hypertension Allergies azithromycin [From ZITHROMAX] Allergy (Intermediate, Verified 01/26/23 13:37) HIVES losartan [LOSARTAN] Allergy (Intermediate, Verified 01/26/23 13:37) RASH penicillin V Allergy (Unknown, Verified 01/26/23 13:37) Rash Penicillins [PENICILLINS] Allergy (Unknown, Verified 01/26/23 13:37) CHILDHOOD REACTION vancomycin Allergy (Unknown, Verified 01/26/23 13:37) rash Losartan ARBs Allergy (Unknown, Uncoded 01/26/23 13:37) Rash PCN Allergy (Unknown, Uncoded 01/26/23 13:37) ? Medication List - Last Reconciled 01/27/23 by Reggie Talamantes MD lisinopril 20 mg PO DAILY lisinopril 10 mg PO DAILY Tobacco use date assessed: 10/28/22 Dental Screening Dental Screen Date: 01/26/23 Did you have a dental visit in the last 12 months?: Yes Did you have a dental problem in the last 6 months where you did not have access to dental care?: No Was dental information given to patient?: Patient has dentist HPI Hypertension HPI Details high BP; compliant with rx but bp high PFSH Medical History Scrotal wall abscess Cellulitis of scrotum HTN (hypertension) Surgical History H/O inguinal hernia repair Family History Maternal Grandfather Stroke Maternal Grandmother Stroke Social History Housing: House Alcohol intake: current Alcohol intake frequency: a few times a week Patient Tobacco Use Status: Current everyday Tobacco user Tobacco use type: Cigarette Cigarette Packs Per Day: 1 Cigarettes Per Day: 20 e-Cigarette/Vaping Use: Never Used Second Hand Smoke Exposure: No service: No Current occupational status: employed 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 1. Little interest or pleasure in doing things: not at all 2. Feeling down, depressed, or hopeless: not at all 3. Trouble falling or staying asleep, or sleeping too much: not at all 4. Feeling tired or having little energy: not at all 5. Poor appetite or overeating: not at all 6. Feeling bad about yourself - or that you are a failure or have let yourself or your family down: not at all 7. Trouble concentrating on things, such as reading the newspaper or watching television: not at all 8. Moving or speaking so slowly that other people could have noticed. Or the opposite - being so fidgety or restless that you have been moving around a lot more than usual: not at all 9. Thoughts that you would be better off or of hurting yourself in some way: not at all Total score: 0 Depression Screening Interpretation: Negative Depression Screening Done: Yes 40106 - PHQ-9 Billing: Yes Source: Developed by Drs. Allen Geiger, Tony Street and colleagues, with an educational romeo from [employer]. Thrive Questionnaire Date Thrive assessed: 06/23/22 AUDIT C Alcohol Use Questionnaire (AUDIT-C) 1. How often do you have a drink containing alcohol?: 4 or more times a week 2. How many drinks containing alcohol do you have on a typical day when you are drinking?: 1 or 2 3. How often do you have six or more drinks on one occasion?: Never Total Score: 4 Score Reviewed/Action Taken: Yes MARIUSZ-7 AMB Questionnaire MARIUSZ-7 Date MARIUSZ - 7 assessed: 06/23/22 Source: Developed by Drs. Allen Geiger, Tony Street and colleagues, with an educational romeo from [employer]. Review of Systems Const Denies chills, Denies headache(s) and Denies weight loss ENT Denies headache(s) Card Denies chest pain, Denies syncope, Denies irregular heart rhythm and Denies dyspnea Resp Denies chest congestion, Denies cough and Denies dyspnea GI Denies abdominal pain, Denies change in stool character, Denies nausea and Denies vomiting Musc Denies deformity and Denies joint swelling Neuro Denies syncope and Denies headache(s) Physical exam (Primary Care) Vital Signs: Last Vital Signs Pulse 85 01/26/23 13:36 BP 170/90 H 01/26/23 13:36 Pulse Ox 98 01/26/23 13:36 Oxygen Delivery Method Room Air 01/26/23 13:36 BMI result Body Mass Index 31.6 Tobacco/Smoking Status: Tobacco use Status Tobacco use date assessed 10/28/22 01/26/23 13:41 Patient Tobacco Use Status Current everyday Tobacco 01/26/23 13:41 Tobacco use type Cigarette 01/26/23 13:41 e-Cigarette/Vaping Use Never Used 01/26/23 13:41 PHQ-9: PHQ-9 Score PHQ-9: Total score 0 01/26/23 13:41 Depression Screening Interpretation: Negative Thrive Assessment: Date of Thrive Assessment Date Thrive assessed 06/23/22 01/26/23 13:41 Const General: cooperative, comfortable, no acute distress and alert Neck Neck: Yes no lymphadenopathy Thyroid: Thyroid normal Resp Effort & Inspection: normal respiratory effort Auscultation: clear to auscultation bilaterally Percussion: percussion normal Cardio Jugular venous distension: no JVD Palpation: normal PMI Rate: regular rate Rhythm: regular rhythm Heart sounds: S1 normal heart sound present and S2 normal heart sound present GI Inspection: Yes normal to inspection Palpation (GI): No hepatosplenomegaly present Skin General skin exam: no rashes or lesions noted Extrem General: Yes no clubbing, cyanosis or edema Assessment and Plan Assessment & Plan (1) Hypertension: Code(s): I10 - Essential (primary) hypertension Plan: increase dose; f/u 1 week Medications: New lisinopril 20 mg PO DAILY 30 tabs 3RF Coding Level of Care Code Est Pt Level 3 (64631) Diagnoses Hypertension I10
== END 2023-01-26 13:51 | disposition home or self-care (01) ==
PROVIDERS: PCP Internal Medicine; Visit Provider Internal Medicine
DX: I10 Essential (primary) hypertension (principal)
CPT/HCPCS: 99213

== ENCOUNTER 2023-04-29 10:22 | Outpatient (AMB) | payer BC, SELFPAY ==
[2023-04-29 10:23] VITALS: BP 168/80; PULSE 98; O2SAT 100; BMI 30.6
--- NOTE | 2023-04-29 10:23 | A.OFFPC_ITS ---
Vital Signs 04/29/23 10:23 Height 6 ft Weight 226 lb BMI 30.6 BP 168/80 H Blood Pressure Location Lt brachial Position Sitting Pulse 98 Pulse Source Pulse Oximeter Pulse Oximetry (%) 100 Oxygen Delivery Method Room Air Intake Visit Reasons: Shortness of breath Floor Tech Required: No Salesperson Shoes: Not Required per policy Accompanied by: Self / Same As Patient Allergies azithromycin [From ZITHROMAX] Allergy (Intermediate, Verified 04/29/23 10:24) HIVES losartan [LOSARTAN] Allergy (Intermediate, Verified 04/29/23 10:24) RASH penicillin V Allergy (Unknown, Verified 04/29/23 10:24) Rash Penicillins [PENICILLINS] Allergy (Unknown, Verified 04/29/23 10:24) CHILDHOOD REACTION vancomycin Allergy (Unknown, Verified 04/29/23 10:24) rash Losartan ARBs Allergy (Unknown, Uncoded 04/29/23 10:24) Rash PCN Allergy (Unknown, Uncoded 04/29/23 10:24) ? Medication List - Last Reconciled 04/29/23 by Reggie Talamantes MD lisinopril 20 mg PO DAILY lisinopril 10 mg PO DAILY Tobacco use date assessed: 04/29/23 Dental Screening Dental Screen Date: 04/29/23 Did you have a dental visit in the last 12 months?: Yes Did you have a dental problem in the last 6 months where you did not have access to dental care?: No Was dental information given to patient?: Patient has dentist HPI Shortness of breath HPI Details HTN on Rx; BP has been 160-170; some dyspnea with exertion for a few weeks PFSH Medical History Scrotal wall abscess Cellulitis of scrotum HTN (hypertension) Surgical History H/O inguinal hernia repair Family History Maternal Grandfather Stroke Maternal Grandmother Stroke Social History Housing: House Alcohol intake: current Alcohol intake frequency: a few times a week Patient Tobacco Use Status: Current everyday Tobacco user Tobacco use type: Cigarette Cigarette Packs Per Day: 1 Cigarettes Per Day: 20 e-Cigarette/Vaping Use: Never Used Second Hand Smoke Exposure: No service: No Current occupational status: employed 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 1. Little interest or pleasure in doing things: not at all 2. Feeling down, depressed, or hopeless: not at all 3. Trouble falling or staying asleep, or sleeping too much: not at all 4. Feeling tired or having little energy: not at all 5. Poor appetite or overeating: not at all 6. Feeling bad about yourself - or that you are a failure or have let yourself or your family down: not at all 7. Trouble concentrating on things, such as reading the newspaper or watching television: not at all 8. Moving or speaking so slowly that other people could have noticed. Or the opposite - being so fidgety or restless that you have been moving around a lot more than usual: not at all 9. Thoughts that you would be better off or of hurting yourself in some way: not at all Total score: 0 Depression Screening Interpretation: Negative Depression Screening Done: Yes 69278 - PHQ-9 Billing: Yes Source: Developed by Drs. Allen Geiger, Marsha Cuellar, Tony Son and colleagues, with an educational romeo from [employer] Thrive Questionnaire Date Thrive assessed: 04/29/23 I am a: Patient What is your living situation today?: I have a steady place to live Within the past 12 months, did the food you bought not last and you didn't have the money to get more?: Never true Within the past 12 months, did you worry whether your food would run out before you got money to buy more?: Never true Do you have trouble paying for medicines?: No Do you have trouble getting transportation to medical appointments?: No Do you have trouble paying your heating and electricity bill?: No Do you have trouble taking care of your child, family member or friend?: No Do you have trouble with day-to-day activities such as bathing, preparing meals, shopping, managing finances, etc.?: No Are you currently unemployed and looking for a job?: No Are you interested in more education?: No Please select the resources that you would like help with: None THRIVE Score: 0 AUDIT C Alcohol Use Questionnaire (AUDIT-C) 1. How often do you have a drink containing alcohol?: 4 or more times a week 2. How many drinks containing alcohol do you have on a typical day when you are drinking?: 1 or 2 3. How often do you have six or more drinks on one occasion?: Never Total Score: 4 Score Reviewed/Action Taken: Yes MARIUSZ-7 AMB Questionnaire MARIUZS-7 Date MARIUSZ - 7 assessed: 04/29/23 Feeling nervous, anxious, or on edge: 0 = Not at all Not being able to stop or control worryin = Not at all Worrying too much about different things: 0 = Not at all Trouble relaxin = Not at all Being so restless that it is hard to sit still: 0 = Not at all Becoming easily annoyed or irritable: 0 = Not at all Feeling afraid as if something awful might happen: 0 = Not at all Total MARIUSZ-7 score (0-4 normal; 5-9 mild; 10-14 moderate; 15-21 severe): 0 Source: Developed by Drs. Allen Geiger, Marsha Cuellar, Tony Son and colleagues, with an educational romeo from [employer]. Review of Systems Const Denies chills, Denies headache(s) and Denies weight loss ENT Denies headache(s) Card Denies chest pain and Denies syncope Resp Denies chest congestion and Denies cough GI Denies abdominal pain, Denies change in stool character, Denies nausea and Den ies vomiting Musc Denies deformity and Denies joint swelling Neuro Denies syncope and Denies headache(s) Physical exam (Primary Care) Vital Signs: Last Vital Signs Pulse 98 04/29/23 10:23 BP 168/80 H 04/29/23 10:23 Pulse Ox 100 04/29/23 10:23 Oxygen Delivery Method Room Air 04/29/23 10:23 BMI result Body Mass Index 30.6 Tobacco/Smoking Status: Tobacco use Status Tobacco use date assessed 04/29/23 04/29/23 10:25 Patient Tobacco Use Status Current everyday Tobacco 04/29/23 10:25 Tobacco use type Cigarette 04/29/23 10:25 e-Cigarette/Vaping Use Never Used 04/29/23 10:25 PHQ-9: PHQ-9 Score PHQ-9: Total score 0 04/29/23 10:29 Depression Screening Interpretation: Negative Thrive Assessment: Date of Thrive Assessment Date Thrive assessed 04/29/23 04/29/23 10:25 Const General: cooperative, comfortable, no acute distress and alert Neck Neck: Yes no lymphadenopathy Thyroid: Thyroid normal Resp Effort & Inspection: normal respiratory effort Auscultation: clear to auscultation bilaterally Percussion: percussion normal Cardio Jugular venous distension: no JVD Palpation: normal PMI Rate: regular rate Rhythm: regular rhythm Heart sounds: S1 normal heart sound present and S2 normal heart sound present GI Inspection: Yes normal to inspection Palpation (GI): No hepatosplenomegaly present Skin General skin exam: no rashes or lesions noted Extrem General: Yes no clubbing, cyanosis or edema Assessment and Plan Assessment & Plan (1) Hypertension: Code(s): I10 - Essential (primary) hypertension Plan: labs cxr and ekg ; adjust htn rx Orders: Orders Basic Metabolic Panel Today I10 - Essential (primary) hypertension Complete Blood Count Auto Diff Today D64.9 - Anemia, unspecified ECG 12 lead EKG Today I10 - Essential (primary) hypertension XR chest 2V Today I10 - Essential (primary) hypertension Medications: New atenolol 50 mg PO DAILY 90 tabs 0RF Refilled lisinopril 20 mg PO DAILY 30 tabs 3RF Coding Level of Care Code Est Pt Level 3 (38649) Diagnoses Hypertension I10
== END 2023-04-29 11:11 | disposition home or self-care (01) ==
PROVIDERS: PCP Internal Medicine; Visit Provider Internal Medicine
DX: I10 Essential (primary) hypertension (principal)
CPT/HCPCS: 99213

== ENCOUNTER 2023-04-29 10:41 | Outpatient (REF) | payer BC, SELFPAY ==
--- NOTE | ~2023-04-29 | XR_ITS ---
EXAMINATION: XR CHEST 2 VIEWS CLINICAL INFORMATION: Essential (primary) hypertension. COMPARISON: Chest radiograph dated 12/22/2007. TECHNIQUE: Frontal and lateral views of the chest were obtained. FINDINGS: The heart, great vessels, pulmonary vasculature and mediastinum are normal. The lungs show no focal infiltrate, effusion or pneumothorax. There is no acute osseous abnormality. XR/XR chest 2V IMPRESSION: No active cardiopulmonary disease.
--- NOTE | 2023-04-29 10:46 | ECG_ITS ---
Test Reason : I10- HTN Blood Pressure : / mmHG Vent. Rate : 092 BPM Atrial Rate : 092 BPM P-R Int : 136 ms QRS Dur : 084 ms QT Int : 366 ms P-R-T Axes : 064 081 061 degrees QTc Int : 452 ms Normal sinus rhythm Possible Anterior infarct , age undetermined Abnormal ECG When compared with ECG of 03-MAR-2010 11:43, Borderline criteria for Anterior infarct are now Present Referred By: Reggie Talamantes Electronically Signed By:LAUREN SALAZAR MD
[2023-04-29 11:02] LABS: MANUAL DIFF FLAG NO
[2023-04-29 11:59] LABS: Basophils Percent Auto 0.4 % (0-2); Eosinophils Absolute Auto 0.2 X10*3/uL (0.0-0.4); Hematocrit 43.7 % (42.0-52.0); Hemoglobin 14.9 g/dl (14.0-18.0); Imm Gran Abs Auto 0.05 X10*3/uL (0.00-0.03); Imm Gran Pct Auto 0.5 % (0.0-0.4); Lymphocytes Absolute Auto 0.7 X10*3/uL (1.2-4.9); Lymphocytes Percent Auto 7.7 % (20-40); Mean Corpuscular HGB Conc 34.1 g/dl (31.0-36.0); Mean Corpuscular Hemoglobin 30.8 pg (27.0-33.0); Mean Corpuscular Volume 90.5 fL (80.0-98.0); Mean Platelet Volume 9.7 fL (9.4-12.4); Monocytes Absolute Auto 0.8 X10*3/uL (0.1-1.2); Monocytes Percent Auto 8.3 % (2-11); Neutrophils Absolute Auto 7.7 x10*3/uL (2.0-8.3); Neutrophils Percent Auto 81.1 % (45-73); Platelet Count 310 X10*3/uL (160-400); Red Blood Count 4.83 X10*6/uL (4.60-5.80); Red Cell Distribution Width 12.5 % (11.0-16.0); White Blood Count 9.5 X10*3/uL (4.8-10.8)
[2023-04-29 12:43] LABS: Anion Gap 11 (12-20); Blood Urea Nitrogen 10 mg/dL (9-16); Calcium 9.6 mg/dL (8.4-10.2); Carbon Dioxide 31 mmol/L (22-29); Chloride 102 mmol/L (96-108); Estimated Glomerular Filt Rate > 60; Glucose Random 98 mg/dL (60-115); Potassium 3.8 mmol/L (3.3-5.1); Sodium 140 mmol/L (135-145)
== END 2023-04-29 10:42 | disposition home or self-care (01) ==
LOC: HO.LAB 10:41
PROVIDERS: PCP Internal Medicine; Visit Provider Internal Medicine
DX: I10 Essential (primary) hypertension (principal); D64.9 Anemia, unspecified
CPT/HCPCS: 36415; 71046; 80048; 85025; 93005

== ENCOUNTER → 2023-04-29 10:46 | Outpatient (BNV) | payer BC, SELFPAY | PROVIDERS: PCP Internal Medicine; Visit Provider Internal Medicine Cardiovascular Disease | DX: R94.31 Abnormal electrocardiogram [ECG] [EKG] (principal) | CPT/HCPCS: 93010 ==

== ENCOUNTER 2023-11-10 09:26 | Outpatient (AMB) | payer BC, SELFPAY ==
[2023-11-10 09:28] VITALS: BP 138/78; PULSE 72; O2SAT 98; BMI 30.1
--- NOTE | 2023-11-10 09:29 | A.OFFPC_ITS ---
Vital Signs 11/10/23 09:28 Height 6 ft Weight 222 lb BMI 30.1 BP 138/78 Blood Pressure Location Lt brachial Position Sitting Pulse 72 Pulse Source Pulse Oximeter Pulse Oximetry (%) 98 Oxygen Delivery Method Room Air Intake Visit Reasons: Hypertension Necktie Centralizing Machine Operator Required: No Accompanied by: Self / Same As Patient Allergies azithromycin [From ZITHROMAX] Allergy (Intermediate, Verified 11/10/23 09:28) HIVES losartan [LOSARTAN] Allergy (Intermediate, Verified 11/10/23 09:28) RASH penicillin V Allergy (Unknown, Verified 11/10/23 09:28) Rash Penicillins [PENICILLINS] Allergy (Unknown, Verified 11/10/23 09:28) CHILDHOOD REACTION vancomycin Allergy (Unknown, Verified 11/10/23 09:28) rash Losartan ARBs Allergy (Unknown, Uncoded 11/10/23 09:28) Rash PCN Allergy (Unknown, Uncoded 11/10/23 09:28) ? Medication List - Last Reconciled 11/10/23 by Reggie Talamantes MD atenolol 50 mg PO DAILY lisinopril 10 mg PO DAILY lisinopril 20 mg PO DAILY varenicline (Chantix Continuing Month Box) 1 mg PO BID Tobacco use date assessed: 04/29/23 Dental Screening Dental Screen Date: 04/29/23 HPI Hypertension HPI Details HTN; stable on rx; compliant [facility] Medical History Scrotal wall abscess Cellulitis of scrotum HTN (hypertension) Surgical History H/O inguinal hernia repair Family History Maternal Grandfather Stroke Maternal Grandmother Stroke Social History Housing: House Alcohol intake: current Alcohol intake frequency: a few times a week Patient Tobacco Use Status: Current everyday Tobacco user Tobacco use type: Cigarette Cigarette Packs Per Day: 1 Cigarettes Per Day: 20 e-Cigarette/Vaping Use: Never Used Second Hand Smoke Exposure: No service: No Current occupational status: employed 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 1. Little interest or pleasure in doing things: not at all 2. Feeling down, depressed, or hopeless: not at all 3. Trouble falling or staying asleep, or sleeping too much: not at all 4. Feeling tired or having little energy: not at all 5. Poor appetite or overeating: not at all 6. Feeling bad about yourself - or that you are a failure or have let yourself or your family down: not at all 7. Trouble concentrating on things, such as reading the newspaper or watching television: not at all 8. Moving or speaking so slowly that other people could have noticed. Or the opposite - being so fidgety or restless that you have been moving around a lot more than usual: not at all 9. Thoughts that you would be better off or of hurting yourself in some way: not at all Total score: 0 Depression Screening Interpretation: Negative Depression Screening Done: Yes 52274 - PHQ-9 Billing: Yes Source: Developed by Drs. Allen Geiger, Marsha Cuellar, Tony Son and colleagues, with an educational romeo from [employer]. Thrive Questionnaire Date Thrive assessed: 04/29/23 AUDIT C Alcohol Use Questionnaire (AUDIT-C) 1. How often do you have a drink containing alcohol?: 4 or more times a week 2. How many drinks containing alcohol do you have on a typical day when you are drinking?: 1 or 2 3. How often do you have six or more drinks on one occasion?: Never Total Score: 4 Score Reviewed/Action Taken: Yes MARIUSZ-7 AMB Questionnaire MARIUSZ-7 Date MARIUSZ - 7 assessed: 04/29/23 Source: Developed by Drs. Allen Geiger, Marsha Cuellar, Tony Son and colleagues, with an educational romeo from [employer]. Review of Systems Const Denies chills, Denies headache(s) and Denies weight loss ENT Denies headache(s) Card Denies chest pain, Denies syncope, Denies irregular heart rhythm and Denies dyspnea Resp Denies chest congestion, Denies cough and Denies dyspnea GI Denies abdominal pain, Denies change in stool character, Denies nausea and Denies vomiting Musc Denies deformity and Denies joint swelling Neuro Denies syncope and Denies headache(s) Physical exam (Primary Care) Vital Signs: Last Vital Signs Pulse 72 11/10/23 09:28 BP 138/78 11/10/23 09:28 Pulse Ox 98 11/10/23 09:28 Oxygen Delivery Method Room Air 11/10/23 09:28 BMI result Body Mass Index 30.1 Tobacco/Smoking Status: Tobacco use Status Tobacco use date assessed 04/29/23 11/10/23 09:31 Patient Tobacco Use Status Current everyday Tobacco 11/10/23 09:31 Tobacco use type Cigarette 11/10/23 09:31 e-Cigarette/Vaping Use Never Used 11/10/23 09:31 PHQ-9: PHQ-9 Score PHQ-9: Total score 0 11/10/23 09:35 Depression Screening Interpretation: Negative Thrive Assessment: Date of Thrive Assessment Date Thrive assessed 04/29/23 11/10/23 09:31 Const General: cooperative, comfortable, no acute distress and alert Neck Neck: Yes no lymphadenopathy Thyroid: Thyroid normal Resp Effort & Inspection: normal respiratory effort Auscultation: clear to auscultation bilaterally Percussion: percussion normal Cardio Jugular venous distension: no JVD Palpation: normal PMI Rate: regular rate Rhythm: regular rhythm Heart sounds: S1 normal heart sound present and S2 normal heart sound present GI Inspection: Yes normal to inspection Palpation (GI): No hepatosplenomegaly present Skin General skin exam: no rashes or lesions noted Extrem General: Yes no clubbing, cyanosis or edema Assessment and Plan Assessment & Plan (1) Hypertension: Code(s): I10 - Essential (primary) hypertension Plan: stable; same rx Medications: New varenicline (Chantix Continuing Month Box) 1 mg PO BID 56 tabs 2RF Refilled lisinopril 10 mg PO DAILY 30 tabs 3RF lisinopril 20 mg PO DAILY 90 tabs 1RF Coding Level of Care Code Est Pt Level 3 (74229) Diagnoses Hypertension I10
== END 2023-11-10 11:29 | disposition home or self-care (01) ==
PROVIDERS: PCP Internal Medicine; Visit Provider Internal Medicine
DX: I10 Essential (primary) hypertension (principal)
CPT/HCPCS: 99213

== ENCOUNTER 2024-07-19 13:44 | Outpatient (AMB) | payer BC, SELFPAY ==
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
[2024-07-19 13:54] VITALS: BP 126/70; PULSE 68; TEMP 36.4; O2SAT 98; BMI 31.7
--- OUTSIDE RECORDS SUMMARY | 2024-07-19 16:24 | XMS_ITS ---
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 Name Role Phone Albin LEAVITT, Reggie Primary Care Provider Unavaila Allen Carpio [phone] REASON FOR VISIT Patient presents today for a COLON SCREENING Encounters Encounter Location Date Provider Diagnosis [facility] [address] [place] [id number] 04/09/2023 Allen Gill Plan Of Treatment No Information Progress Notes * KRISTY OLEAOB:[birth year] (48 yo M)Acc No.[id number]:04/09/2023 Progress Notes Patient:?ENRIQUE OLEA Provider:?Allen Gill MD :1975???Age:47 Y???Sex:Male Wade e:04/09/2023 Address:[address] [place], [place] [id number] Pcp:Reggie Talamantes MD Subjective: * Chief Complaints: * ???1. Patient presents today for a COLON SCREENING. * Medical History:? Objective: * Vitals:? Assessment: Plan: * Treatment: * * The named appointment provid er may or may not be the originator of this progress note, and it is not deemed complete until electronically signed by the appointment provider. Sign off status: Pending * Provider:?Allen Gill MD Date:? 024 Generated for Te franklin/Janessa/eTransmitting on:?07/19/2024 04:23 PM EDT
--- OUTSIDE RECORDS SUMMARY | 2024-07-19 16:24 | XMS_ITS | Data Portability ---
Author Organization [facility], [address] Address [address] [place] [address] Assessment No assessment recorded. Plan of Treatment Reminders Order Date Submit Date Provider Last Modified By Organization Details Last Modified Time Details Appointments None recorded. Lab methicilli n resistant staphyloco ccus aureus, culture, unspecifie d specimen 2022 023 GRANGER [facility], [address] [place] [address], [place], [address], 3 10:06:27 Referral None recorded. Procedures None recorded. Surgeries None recorded. Imaging None recorded. Medication Orders prednisone 20 mg tablet 2022 023 [facility]/Pharmacy #[id number], [address] [place], [address], 3 14:04:11 hydroxyzin e HCl 25 mg tablet 2022 023 [facility]/Pharmacy #2071, [address] [place], [address], 3 14:04:11 prednisone 20 mg tablet 2022 023 [facility]/Pharmacy #2071, [address] [place], [address], 3 13:51:00 hydroxyzin e HCl 25 mg tablet 2022 023 [facility]/Pharmacy #2071, [address] [place], [address], 3 08:41:09 mupirocin 2 % topical ointment 2022 023 [facility]/Pharmacy #4892, [address] [place], [address], 09:00:56 Bactrim DS 800 mg-160 mg tablet 2022 023 [facility]/Pharmacy #0784, [address] [place], [address], 13:51:05 Patient TargetsNo targets recorded. Patient Instructions Encounter Date Encounter Id Patient Instructions Last Modified By Organization Details Last Modified Time 06/14/2022 [id number] hives: care instructions [email or web address] Not available 06/14/2022 09:00:53 Cellulitis is a skin infection caused by bacteria, most often strep or staph. It often occurs after a break in the skin from a scrape, cut, bite, or puncture, or after a rash. Cellulitis may be treated without doing tests to find out what caused it. But your doctor may do tests, if needed, to look for a specific bacteria, like methicillin-resist ant Staphylococcus aureus (MRSA). The doctor has checked you carefully, but problems can develop later. If you notice any problems or new symptoms, get medical treatment right away. How can you care for yourself at home? Take your antibiotics as directed. Do not stop taking them just because you feel better. You need to take the full course of antibiotics. Prop up the infected area on pillows to reduce pain and swelling. Try to keep the area above the level of your heart as often as you can. If your doctor told you how to care for your infection, follow your doctor's instructions. If you did not get instructions, follow this general advice: Wash the area with clean water 2 times a day. Don't use hydrogen peroxide or alcohol, which can slow healing. You may cover the area with a thin layer of petroleum jelly, such as Vaseline, and a non-stick bandage. Apply more petroleum jelly and replace the bandage as needed. Be safe with medicines. Take pain medicines exactly as directed. If the doctor gave you a prescription medicine for pain, take it as prescribed. If you are not taking a prescription pain medicine, ask your doctor if you can take an rwgl-okz-acdkxtu medicine. [email or web address] Not available 06/14/2022 09:00:20 06/22/2022 [id number] hives: care instructions z3 Not available 06/22/2022 08:41:03 Eczema and atopi c dermatitis is made worse with excessive water exposure. Limit water exposure (showers, hand social service technician, etc). Between application of any prescription creams, using OTC hand creams can be beneficial to add proper moisture to the skin. Eucerin cream is a good choice. OTC antihistamines can be taken for itching as directed. If fails to improve, consult dermatology. Not available 06/22/2022 08:41:01 How can I take care of myself? Follow these important instructions: - Avoid further irritation of the skin where you have contact dermatitis. - Avoid further contact with the substance that appears to cause the dermatitis. - Put cool, moist cloths on the areas of skin with dermatitis. How can I help prevent contact dermatitis? - If you know what substance caused the dermatitis, make sure that the substance is not one of the ingredients in the cosmetic, cleaning, or other products that you use. If you are accidentally exposed to the substance, wash the exposed area immediately and thoroughly. If you are allergic to nickel, find out what metal is in jewelry before you wear it. Whether or not you know what substances give you the rash, it may be helpful to: - Learn to recognize poison oak, poison anatoly, and ragweed, and avoid contact with them. - Use hypoallergenic cosmetics. - Pat your skin dry instead of rubbing it. - Try to avoid using solvents and chemicals, and wear heavy gloves when you must use them. - Use a wire straightener, or wear rubber gloves when you wash dishes. Call office, return to UC or PCP, or go to ER if: - Persistence and worsening of symptoms even after withdrawal of irritating materials calls for medical attention. - Develop new symptoms such as fevers, chills, body aches, or feelings of illness [facility] Not available 06/22/2022 08:40:43 06/29/2022 [id number] hives: care instructions [facility] Not available 06/29/2022 14:04:09 Eczema and atopi c dermatitis is made worse with excessive water exposure. Limit water exposure (showers, hand social service technician, etc). Between application of any prescription creams, using OTC hand creams can be beneficial to add proper moisture to the skin. Eucerin cream is a good choice. OTC antihistamines can be taken for itching as directed. If fails to improve, consult dermatology. vijay Not available 06/29/2022 14:04:08 How can I take care of myself? Follow these important instructions: - Avoid further irritation of the skin where you have contact dermatitis. - Avoid further contact with the substance that appears to cause the dermatitis. - Put cool, moist cloths on the areas of skin with dermatitis. How can I help prevent contact dermatitis? - If you know what substance caused the dermatitis, make sure that the substance is not one of the ingredients in the cosmetic, cleaning, or other products that you use. If you are accidentally exposed to the substance, wash the exposed area immediately and thoroughly. If you are allergic to nickel, find out what metal is in jewelry before you wear it. Whether or not you know what substances give you the rash, it may be helpful to: - Learn to recognize poison oak, poison anatoly, and ragweed, and avoid contact with them. - Use hypoallergenic cosmetics. - Pat your skin dry instead of rubbing it. - Try to avoid using solvents and chemicals, and wear heavy gloves when you must use them. - Use a wire straightener, or wear rubber gloves when you wash dishes. Call office, return to UC or PCP, or go to ER if: - Persistence and worsening of symptoms even after withdrawal of irritating materials calls for medical attention. - Develop new symptoms such as fevers, chills, body aches, or feelings of illness vijay Not available 06/29/2022 14:03:48 Reason for Referral None Reported. Results Created Date Observation Date Name Description Value Unit Range Abnormal Flag Note LastModifiedBy Organization Detail LastModifiedTime 06/15/1906/16/2022 MRSA SCREE MAXIMILIANO CULTU RE MRSA screening culture NEGATI VE Not Available [facility] ([facility]) [address] [facility], [place], [address], 06/16/2022 10:06:27 Result Notes None recorded. Problems No Known Problems Procedures Surgical History Date Name Laterality Status Provider Name and Address Organization Details Recorded Time hernia repair completed ADINA MALCOLM [facility] 06/14/2022 08:25:32 Imaging Results None recorded. Procedure Notes None recorded. Medical Equipment None Reported. Allergies Allergen ID Allergen Name Allergen Category Reaction Reaction Severity Criticality Documentation Date Start Date Code Code System Note Provider Name and Address Organization Details Recorded Time 254254 Product containin g penicilli n (product) medicatio n hives Not available Not available 06/14/2022 95415 8001 SNOMED ADINA monahan [employer] [facility] [employer] 3 08:24:31 Medications Name Sig Start Date Stop Date Status Note LastModified by Organization Details LastModified Time prednisone 20 mg tablet Take 2 tablets every day by oral route in the morning for 5 days. 2022 active Not Available Not Available Not Avai lable sulfamethox azole 800 mg-trimetho prim 160 mg tablet TAKE 1 TABLET BY MOUTH EVERY 12 HOURS WITH MEALS FOR 7 DAYS 06/29 completed Not Available Not Available Not Available hydroxyzine HCl 25 mg tablet Take 1 tablet 3 times a day by oral route as needed for 7 days. 2022 active Not Available Not Available Not Avai lable mupirocin 2 % topical ointment APPLY TO AFFECTED AREA 3 TIMES A DAY active Not Available Not Available No t Available Vitals Date Recorded Body height Body mass index (BMI) Body weight Body temperature Respiratory rate Heart rate Oxygen saturation Oxygen saturation in Arterial blood by Pulse oximetry Systolic blood pressure Diastolic blood pressure Provider Name and Address Organization Details Last Updated DateTime 3 182.88 cm 29.8 kg/m2 85785.3 2 g 97.8 [degF] 18 /min 96 /min 97 % 97 % 143 mm[Hg] 92 mm[Hg] ADINA Fierro [facility] 3 08:28:03 Date Recorded Body height Body mass index (BMI) Body weight Pain severity - 0-10 verbal numeric rating [Score] - Reported Oxygen saturation Oxygen saturation in Arterial blood by Pulse oximetry Heart rate Respiratory rate Body temperature Systolic blood pressure Diastolic blood pressure Provider Name and Address Organization Details Last Updated DateTime 3 182.88 cm 29.8 kg/m2 55815.3 2 g 0 98 % 98 % 95 /min 18 /min 97.7 [degF] 153 mm[Hg] 78 mm[Hg] Alice Fentondeanna [facility] 3 08:25:25 Date Recorded Body height Body mass index (BMI) Body weight Pain severity - 0-10 verbal numeric rating [Score] - Reported Heart rate Oxygen saturation Oxygen saturation in Arterial blood by Pulse oximetry Respiratory rate Body temperature Systolic blood pressure Diastolic blood pressure Provider Name and Address Organization Details Last Updated DateTime 3 182.88 cm 29.8 kg/m2 61555.3 2 g 0 86 /min 97 % 97 % 18 /min 97.2 [degF] 141 mm[Hg] 89 mm[Hg] Aliceisauro Diazonelia [facility] 3 13:52:17 Social History Question Answer Notes LastModified by [facility] ion Details LastModified Time Tobacco Smoking Status Current Every Day Smoker ADINA monahan [facility] 06/14/2022 08:25:08 What Is Your Level Of Alcohol Consumption? Occasional Information not available 06/14/2022 What Is Your Water Source? City Information not available 06/14/2022 What Is Your Heat Source? Other Information not available 06/14/2022 Have You Had Direct Contact, Or Contact During Intimacy, With Monkeypox Rash, Scabs, Or Body Fluids From A Person With Monkeypox? No Information not available 06/14/2022 How Much Tobacco Do You Smoke? 1 PPD Information not available 06/14/2022 Do You Use Any Illicit Or Recreational Drugs? No Information not available 06/14/2022 Have You Recently Traveled Abroad? No Information not available 06/14/2022 Do You Or Have You Ever Used Any Other Forms Of Tobacco Or Nicotine? No Information not available 06/14/2022 Sex: Unknown Functional Status None recorded. Mental Status None recorded. Family History Relationship Description Onset Age of this Age Resolved Age Notes LastModified by Organization Details LastModified Time Father No current problems or disability Not available 08:24:45 Mother No current problems or disability Not available 08:24:45 Medical History No medical history recorded. Immunizations Vaccine Type Date Status Note Provider Nam e and Address Organization Details Recorded Time Influenza, split virus, quadrivalent, preservative 7 completed Alice Mondellae null, [place] - [facility] 06/22/2022 08:21:06 Influenza, split virus, quadrivalent, preservative 6 completed Alice Monfette null, PA - [facility] 06/22/2022 08:21:06 COVID-19 vaccine, vector-nr, rS-Ad26, PF, 0.5 mL 1 completed Alice Diazfediyae null, PA - [facility] 06/22/2022 08:21:06 Td (adult), 5 Lf tetanus toxoid, preservative free, adsorbed 8 completed Alice Diazfediyae null, PA - [facility] 06/22/2022 08:21:06 Past Encounters Encounter ID Performer Location Encounter Start Date Encounter Closed Date Diagnosis/Indication Diagnosis SNOMED-CT Code Diagnosis ICD10 Code Diagnosis Note [id number] [address] [place] [address] 05/28/2016 08:11:09 05/28/2016 08:36:31 [id number] [address] [facility] [address] [place] [address] 03/06/2020 15:45:16 03/06/2020 17:44:46 [id number] [address] [place] [address] 04/09/2017 11:52:09 04/09/2017 12:54:06 [id number] [address] [place] [address] 03/13/2019 09:03:55 03/13/2019 10:08:11 [id number] Lucio Diaz NP [address] [place] [address] 06/14/2022 08:12:25 06/14/2022 09:12:28 Cellulitis of external nose 41103200 J34.0 [id number] Lucio Diaz NP [address] [place] [address] 06/22/2022 08:02:48 06/22/2022 08:41:39 Eczema 40217334 L30.9 [id number] Lucio Diaz 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 [address] [address] 06/29/2022 12:31:46 06/29/2022 14:08:16 Irritant contact dermatitis 529104546 L24.9 Health Concerns Section Related Observation LastModified by Organization Detai ls LastModified Time None Recorded Concern Status LastModified by Organization Details LastModified Time None Recorded Advance Directives Directive None Recorded Payers Encounter Date Sequence Insurance Name Policy Number Policy Glass Covered Member ID Glass Member ID Guarantor Name 06/14/2022 1 [place] [id number] Neris S Moquin [id number] Fran S Moquin 06/22/2022 1 [place] [id number] Neris S Moquin [id number] Fran S Moquin 06/29/2022 1 [place] ([place] Fran S Moquin [id number] Farn Allen Moseema Notes Date Note Type Note Provider Name and Address Organization Details Recorded Time 3 text/html UC Rash/Skin LesionReported bypatient.source of patient informationInformation obtained from patient; Patient arrived at Urgent Care ambulatory Location:face Quality:painful;red;swollen ;non-healing Severity:moderate Duration:1 weeks Context:no new detergent or skin product; no recent change in medication; no exposure to hair dye; no expsoure to new clothes/jewelry; no recent travel; no recent illness; no pets/animals in home; not affiliated with chemicals/pesticides Alleviating Factors:nothing gives relief Associated Symptoms:no fever; no fatigue [place], [address], [place] - [facility] 06/14/2022 09:01:57 3 text/html UC Rash/Skin LesionReported bypatient.source of patient informationInformation obtained from patient; Patient arrived at Urgent Care ambulatory Location:face; neck Quality:itchy;red;flaking;n on-healing;spreading Severity:moderate Duration:2 weeks Context:no new detergent or skin product; no recent change in medication; no exposure to hair dye; no expsoure to new clothes/jewelry; no recent travel; no recent illness; no pets/animals in home; not affiliated with chemicals/pesticides Alleviating Factors:steroid cream Associated Symptoms:no fever; no fatigue [place], [address], [place] - [facility] 06/22/2022 21:16:53 3 text/html UC Rash/Skin LesionReported bypatient.source of patient informationInformation obtained from patient; Patient arrived at Urgent Care ambulatory Location:face; neck Quality:itchy;painful;red;s preading Severity:moderate Duration:months; years Context:no new detergent or skin product; no recent change in medication; no exposure to hair dye; no expsoure to new clothes/jewelry; no recent travel; no recent illness; no pets/animals in home; not affiliated with chemicals/pesticides Alleviating Factors:steroid cream Associated Symptoms:no fever; no fatigue Treatment History:treated previously with prednisone. [place], [address], [place] - [facility] 06/29/2022 14:04:39
--- OUTSIDE RECORDS SUMMARY | 2024-07-19 16:24 | XMS_ITS ---
Author Organization [facility] Address [address] [place] [address] Care Team Providers Care Media Theorist And Author Of Name Role Phone Albin LEAVITT, Reggie Primary Care Provider Unavaila Allen Carpio [phone] REASON FOR VISIT New pt no show Encounters Encounter Location Date Provider Diagnosis [facility] [address] [place] [address] 08/06/2023 Allen Gill Plan Of Treatment No Information Progress Notes * KRISTY OLEAOB:[birth year] (48 yo M)Acc No.[id number]:08/06/2023 Patient:?ELEANOR OLEANATHAN :1975???Age:47 Y???Sex:Male Address:[address] [place] [address], [address] * true * Date:? Generated for Te franklin/Janessa/eTransmitting on:?07/19/2024 04:23 PM EDT
--- OUTSIDE RECORDS SUMMARY | 2024-07-19 16:24 | XMS_ITS | Patient Health Record ---
Author Organization [facility] Address [address] [place] [address] Care Team Providers Care Corrosion Control Fitter Name Role Phone Reggie Talamantes MD Primary Care Provider Allen Parra [phone] Reason For Referral No Information Encounters Encounter Location Date Provider Diagnosis [facility] [address] [place] [address] 08/06/2023 Allen Gill Plan Of Treatment No Information Insurance Providers Payer Name Payer Address Payer Phone Subscriber Number Group Number Insured Name Patient Relationship to Insured Coverage Start Date Coverage End Date [facility] [place] [employer] [place] [address] [place] [address] [phone] [id number] ENRIQUE OLEA Self - patient is the insured
--- OUTSIDE RECORDS SUMMARY | 2024-07-19 16:24 | XMS_ITS ---
Author Organization [facility] Address [address] [place] [address] Care Team Providers Care Stock Saw Operator Name Role Phone Albin LEAVITT, Reggie Primary Care Provider Unavaila Allen Carpio [phone] REASON FOR VISIT Patient presents today for a colon screening Encounters Encounter Location Date Provider Diagnosis [facility] [address] [place] [address] 08/06/2023 Allen Gill Plan Of Treatment No Information Progress Notes * KRISTY OLEAOB:[birth year] (48 yo M)Acc No.[id number]:08/06/2023 Progress Notes Patient:?ENRIQUE OLEA Provider:?Allen Gill MD :1975???Age:47 Y???Sex:Male Wade e:08/06/2023 Address:[address] [place], [place] [id number] Pcp:Reggie Talamantes MD Subjective: * Chief Complaints: * ???1. Patient presents today for a colon screening. * Medical History:? Objective: * Vitals:? Assessment: [...]
== END 2024-07-19 14:57 | disposition home or self-care (01) ==
LOC: HO.HMCH 13:45
PROVIDERS: PCP Internal Medicine; Visit Provider Internal Medicine
DX: Z00.00 Encounter for general adult medical examination without abnormal findings (principal); E66.9 Obesity, unspecified; Z68.31 Body mass index [BMI] 31.0-31.9, adult; I10 Essential (primary) hypertension; Z72.0 Tobacco use; F10.10 Alcohol abuse, uncomplicated; N52.9 Male erectile dysfunction, unspecified; Z23 Encounter for immunization

== ENCOUNTER → 2024-07-19 13:44 | Outpatient (BNVA) | payer BC, SELFPAY | PROVIDERS: PCP Internal Medicine; Visit Provider Internal Medicine | DX: Z00.00 Encounter for general adult medical examination without abnormal findings (principal); Z23 Encounter for immunization; I10 Essential (primary) hypertension; E66.9 Obesity, unspecified; F10.10 Alcohol abuse, uncomplicated; N52.9 Male erectile dysfunction, unspecified; Z72.0 Tobacco use; Z79.899 Other long term (current) drug therapy | CPT/HCPCS: 90471; 90677; 96127 ==

== ENCOUNTER 2024-07-27 11:18 | Outpatient (AMB) | payer BC, SELFPAY ==
[2024-07-27 11:28] VITALS: BP 138/68; PULSE 68; RESP 16; TEMP 36.2; O2SAT 97; BMI 32.1
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
--- OUTSIDE RECORDS SUMMARY | 2024-07-27 13:19 | XMS_ITS | Data Portability ---
Author Organization [facility], [address] Address [address] [place] [address] Assessment No assessment recorded. Plan of Treatment Reminders Order Date Submit Date Provider Last Modified By Organization Details Last Modified Time Details Appointments None recorded. Lab methicilli n resistant staphyloco ccus aureus, culture, unspecifie d specimen 2022 023 [place] [facility], [address] [place] [address], [place], [address], 3 10:06:27 Referral None recorded. Procedures None recorded. Surgeries None recorded. Imaging None recorded. Medication Orders prednisone 20 mg tablet 2022 023 [facility]armacy #[id number], [address] [place], [address], 3 14:04:11 hydroxyzin e HCl 25 mg tablet 2022 023 [facility]/Pharmacy #[id number], [address] [place], [address], 3 14:04:11 prednisone [address] [facility]/Pharmacy #[id number], [address] [place], [address], 3 13:51:00 hydroxyzin e HCl 25 mg tablet 2022 023 [facility]/Pharmacy #2071, [address] [place], [address], 3 08:41:09 mupirocin 2 % topical ointment 2022 023 [facility]/Pharmacy #[id number], [address] [place], [address], 09:00:56 Bactrim DS 800 mg-160 mg tablet 2022 023 [id number], [address] [place], [address], 13:51:05 Patient TargetsNo targets recorded. Patient Instructions Encounter Date Encounter Id Patient Instructions Last Modified By Organization Details Last Modified Time 06/14/2022 [id number] hives: care instructions [email or web address] Not available 06/14/2022 [...] your doctor if you can take an ndrv-jnd-xevmxcl medicine. [email or web address] Not available 06/14/2022 09:00:20 06/22/2022 [id number] hives: care instructions [email or web address] Not available 06/22/2022 08:41:03 Eczema and atopi c dermatitis is made worse with excessive water exposure. Limit water exposure (showers, hand ditch digger, etc). Between application of any prescription creams, [...] you must use them. - Use a talent scout, or wear rubber gloves when you wash dishes. Call office, return to UC or PCP, or go to ER if: - Persistence and worsening of symptoms even after withdrawal of irritating materials calls for medical attention. - Develop new symptoms such as fevers, chills, body aches, or feelings of illness [facility] Not available 06/22/2022 08:40:43 06/29/2022 [id number] hives: care instructions [facility] Not available 06/29/2022 14:04:09 Eczema and atopi c dermatitis is made worse with excessive water exposure. Limit water exposure (showers, hand ditch digger, etc). Between application of any prescription creams, [...] you must use them. - Use a talent scout, or wear rubber gloves when you wash [...] screening culture NEGATI VE Not Available [facility] ([facility]) [address], [place], [address], 06/16/2022 10:06:27 Result Notes None recorded. Problems No Known Problems Procedures Surgical History Date Name Laterality Status Provider Name and Address Organization Details Recorded Time hernia repair completed ADINA MALCOLM [facility] 06/14/2022 08:25:32 Imaging Results None recorded. Procedure Notes None recorded. Medical Equipment None Reported. Allergies Allergen ID Allergen Name Allergen Category Reaction Reaction Severity Criticality Documentation Date Start Date Code Code System Note Provider Name and Address Organization Details Recorded Time 340167 Product containin g penicilli n (product) medicatio n hives Not available Not available 06/14/2022 03250 8001 SNOMED ADINA monahan [employer] [facility] 3 08:24:31 Medications Name Sig Start Date [...] Updated DateTime 3 182.88 cm 29.8 kg/m2 74470.3 2 g 97.8 [degF] 18 /min 96 /min 97 % 97 % 143 mm[Hg] 92 mm[Hg] ADINA Fierro [facility] 3 08:28:03 Date Recorded Body height Body mass index (BMI) Body weight Pain severity - 0-10 verbal numeric rating [Score] - Reported Oxygen saturation Oxygen saturation in Arterial blood by Pulse oximetry Heart rate Respiratory rate Body temperature Systolic blood pressure Diastolic blood pressure Provider Name and Address Organization Details Last Updated DateTime 3 182.88 cm 29.8 kg/m2 66267.3 2 g 0 98 % 98 % 95 /min 18 /min 97.7 [degF] 153 mm[Hg] 78 mm[Hg] Alice Fentondeanna [facility] 3 08:25:25 Date Recorded Body height Body mass index (BMI) Body weight Pain severity - 0-10 verbal numeric rating [Score] - Reported Heart rate Oxygen saturation Oxygen saturation in Arterial blood by Pulse oximetry Respiratory rate Body temperature Systolic blood pressure Diastolic blood pressure Provider Name and Address Organization Details Last Updated DateTime 3 182.88 cm 29.8 kg/m2 33687.3 2 g 0 86 /min 97 % 97 % 18 /min 97.2 [degF] 141 mm[Hg] 89 mm[Hg] Aliceisauro Diazonelia [facility] 3 13:52:17 Social History Question Answer Notes LastModified by Anthillz ion Details LastModified Time Tobacco Smoking Status Current Every Day Smoker ADINA monahan [facility] 06/14/2022 08:25:08 What Is Your Level [...] split virus, quadrivalent, preservative 7 completed Alice Monfette null, [place] - [facility] 06/22/2022 08:21:06 Influenza, split virus, quadrivalent, preservative 6 completed Alice Monfette null, [place] - [facility] 06/22/2022 08:21:06 COVID-19 vaccine, vector-nr, rS-Ad26, PF, 0.5 mL 1 completed Alice Monfette null, [place] - [facility] 06/22/2022 08:21:06 Td (adult), 5 Lf tetanus toxoid, preservative free, adsorbed 8 completed Alice Monfette null, [place] - [facility] 06/22/2022 08:21:06 Past Encounters Encounter ID Performer Location Encounter Start Date Encounter Closed Date Diagnosis/Indication Diagnosis SNOMED-CT Code Diagnosis ICD10 Code Diagnosis Note [id number] [facility] [address] [place] [address] 05/28/2016 08:11:09 05/28/2016 08:36:31 [id number] [address] [place] [address] 03/06/2020 15:45:16 03/06/2020 17:44:46 [id number] [address] [place] [address] 04/09/2017 11:52:09 04/09/2017 12:54:06 [id number] [address] [place] [address] 03/13/2019 09:03:55 03/13/2019 10:08:11 [id number] Lucio DiazDIONNE [address] [place] [phone] 06/14/2022 08:12:25 06/14/2022 09:12:28 Cellulitis of external nose 84300595 J34.0 [id number] Lucioqi Diaz [place] [address] [place] [address] 06/22/2022 08:02:48 06/22/2022 08:41:39 Eczema 26605847 L30.9 [id number] Lucio JoeDIONNE norton [address] [place] [phone] 06/29/2022 12:31:46 06/29/2022 14:08:16 Irritant contact dermatitis 724864301 L24.9 Health Concerns Section Related Observation LastModified by Organization Detai ls LastModified Time None Recorded Concern Status LastModified by Organization Details LastModified Time None Recorded Advance Directives Directive None Recorded Payers Encounter Date Sequence Insurance Name Policy Number Policy Glass Covered Member ID Glass Member ID Guarantor Name 06/14/2022 1 [place] [id number] Neris S Moquin [id number] Moquin 06/22/2022 1 [place] [id number] Neris S Moquin [id number] Fran S Moquin 06/29/2022 1 [place] 2 ([place]) Fran S Moquin [id number] Fran S Moquin Notes Date Note Type Note Provider Name [...] gives relief Associated Symptoms:no fever; no fatigue Lucio Diaz NP [address] [place], [phone], [place] [facility] 06/14/2022 09:01:57 3 text/html UC Rash/Skin [...] fever; no fatigue [place], [address], [facility] 06/22/2022 21:16:53 3 text/html UC Rash/Skin [...] previously with prednisone. [place], [address], [facility] 06/29/2022 14:04:39
== END 2024-07-27 12:17 | disposition home or self-care (01) ==
LOC: HO.HMCH 11:19
PROVIDERS: PCP Internal Medicine
DX: L28.2 Other prurigo (principal)

== ENCOUNTER → 2024-07-27 11:18 | Outpatient (BNVA) | payer BC, SELFPAY | PROVIDERS: PCP Internal Medicine | DX: Z13.89 Encounter for screening for other disorder (principal) ==

== ENCOUNTER 2024-09-01 08:41 | Outpatient (REF) | payer BC, SELFPAY ==
[2024-09-01 08:55] LABS: MANUAL DIFF FLAG NO
--- OUTSIDE RECORDS SUMMARY | 2024-09-01 08:57 | XMS_ITS ---
Author Organization [facility] Address [address] [place] [phone] Care Team Providers Care Hotel Superintendent Name Role Phone Albin LEAVITT, Reggie Primary Care Provider Unavaila Allen Carpio [phone] REASON FOR VISIT New pt no show Encounters Encounter Location Date Provider Diagnosis [facility] [address] [place] [phone] 08/06/2023 Allen Gill Plan Of Treatment No Information Progress Notes * KRISTY OLEAOB:[birth year] (48 yo M)Acc No.[id number]:08/06/2023 Patient:?ENRIQUE OLEA :1975???Age:47 Y???Sex:Male Address:[address] [place] [address], [address] * true * Date:? Generated for Te franklin/Janessa/eTransmitting on:?09/01/2024 08:56 AM EDT
[2024-09-01 10:10] LABS: Basophils Percent Auto 0.6 % (0-2); Eosinophils Absolute Auto 0.2 X10*3/uL (0.0-0.4); Eosinophils Percent Auto 3.7 % (0-4); Hematocrit 40.5 % (42.0-52.0); Hemoglobin 13.5 g/dl (14.0-18.0); Imm Gran Abs Auto 0.05 X10*3/uL (0.00-0.03); Imm Gran Pct Auto 0.8 % (0.0-0.4); Lymphocytes Percent Auto 15.1 % (20-40); Mean Corpuscular HGB Conc 33.3 g/dl (31.0-36.0); Mean Corpuscular Hemoglobin 30.8 pg (27.0-33.0); Mean Corpuscular Volume 92.3 fL (80.0-98.0); Mean Platelet Volume 10.4 fL (9.4-12.4); Monocytes Absolute Auto 0.5 X10*3/uL (0.1-1.2); Monocytes Percent Auto 8.2 % (2-11); Neutrophils Absolute Auto 4.7 x10*3/uL (2.0-8.3); Neutrophils Percent Auto 71.6 % (45-73); Platelet Count 238 X10*3/uL (160-400); Red Blood Count 4.39 X10*6/uL (4.60-5.80); Red Cell Distribution Width 13.1 % (11.0-16.0); White Blood Count 6.5 X10*3/uL (4.8-10.8)
[2024-09-01 10:42] LABS: Alanine Aminotransferase 27 U/L (0-40); Albumin Level 4.1 g/dL (3.5-5.0); Alkaline Phosphatase 67 U/L (39-117); Anion Gap 11 (12-20); Aspartate Amino Transferase 22 U/L (5-37); Bilirubin Total 0.3 mg/dL (0.0-1.0); Blood Urea Nitrogen 15 mg/dL (9-16); Calcium 9.5 mg/dL (8.4-10.2); Carbon Dioxide 30 mmol/L (22-29); Chloride 107 mmol/L (96-108); Cholesterol 135 mg/dL (<200); Estimated Glomerular Filt Rate > 60; Glucose Random 81 mg/dL (60-115); HDL Cholesterol 34 mg/dL (>40); LDL Cholesterol Calculated 83 mg/dL (<100); Potassium 3.7 mmol/L (3.3-5.1); Sodium 144 mmol/L (135-145); Total Protein 6.6 g/dL (6.5-8.0); Triglycerides 94 mg/dL (<150)
[2024-09-01 10:59] LABS: Free T4 (Free Thyroxine) 1.13 ng/dL (0.71-1.85); Thyroid Stimulating Hormone 1.19 uIU/mL (0.32-4.0)
[2024-09-01 11:08] LABS: Folate 12.5 ng/mL (> or = 4.0); Vitamin B12 450 pg/mL (200-900)
== END 2024-09-01 08:42 | disposition home or self-care (01) ==
LOC: HO.LAB 08:41
PROVIDERS: PCP Internal Medicine; Visit Provider Internal Medicine
DX: Z12.5 Encounter for screening for malignant neoplasm of prostate (principal); I10 Essential (primary) hypertension; E78.00 Pure hypercholesterolemia, unspecified
CPT/HCPCS: 36415; 80053; 80061; 82607; 82746; 84153; 84439; 84443; 85025

== ENCOUNTER 2024-09-18 14:57 | Outpatient (AMB) | payer BC, SELFPAY ==
--- OUTSIDE RECORDS SUMMARY | 2023-08-06 10:00 | XMS_ITS ---
Author Organization [facility] Address [address] [place] [phone] Care Team Providers Care Gas Fitter Apprentice Name Role Phone Albin LEAVITT, Reggie Primary Care Provider Unavaila Allen Carpio [phone] REASON FOR VISIT Patient presents today for a colon screening Encounters Encounter Location Date Provider Diagnosis [facility] [address] [place] [phone] 08/06/2023 Allen Gill Plan Of Treatment No Information Progress Notes * KRISTY OLEAOB:[birth year] (49 yo M)Acc No.[id number]:08/06/2023 Progress Notes Patient: ENRIQUE EDWARD Provider: Vadim Gill MD :1975 A ge:47 Y S ex:Male Date:08/06/2023 Address:[address] [place], [place] [id number] Pcp:Reggie Talamantes MD Subjective: * Chief Complaints: [...] MD Date: 0 08/06/2023 Generated for Te franklin/Janessa/Yesikaitting on: 09/18/2024 04:30 PM EDT
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
[2024-09-18 15:02] VITALS: BP 118/70; PULSE 67; TEMP 36.2; O2SAT 97; BMI 32.7
== END 2024-09-18 16:11 | disposition home or self-care (01) ==
LOC: HO.HMCH 14:58
PROVIDERS: PCP Internal Medicine; Visit Provider Internal Medicine
DX: I10 Essential (primary) hypertension (principal); Z68.32 Body mass index [BMI] 32.0-32.9, adult; E66.9 Obesity, unspecified; F17.210 Nicotine dependence, cigarettes, uncomplicated; M54.42 Lumbago with sciatica, left side; G89.29 Other chronic pain; D64.9 Anemia, unspecified

== ENCOUNTER → 2024-09-18 14:57 | Outpatient (BNVA) | payer BC, SELFPAY | PROVIDERS: PCP Internal Medicine; Visit Provider Internal Medicine | DX: Z13.89 Encounter for screening for other disorder (principal) ==

== ENCOUNTER 2024-09-22 09:22 | Outpatient (AMB) | payer BC, SELFPAY ==
--- OUTSIDE RECORDS SUMMARY | 2023-08-06 10:00 | XMS_ITS ---
Author Organization [facility] Address [address] [place] [phone] Care Team Providers Care Sort Line Worker Name Role Phone Albin LEAVITT, Reggie Primary Care Provider Unavaila Allen Carpio [phone] REASON FOR VISIT Patient presents today for a colon screening Encounters Encounter Location Date Provider Diagnosis [facility] [address] [place] [phone] 08/06/2023 Allen Gill Plan Of Treatment No Information Progress Notes * KRISTY OLEAOB:[birth year] (49 yo M)Acc No.[id number]:08/06/2023 Progress Notes Patient: ENRIQUE EDWARD Provider: Vadim Gill MD :1975 A ge:47 Y S ex:Male Date:08/06/2023 Address:[address] [place], [place] [id number] Pcp:Reggie Talamantes MD Subjective: * Chief Complaints: [...] 0 08/06/2023 Generated for Te franklin/Janessa/Yesikaitting on: 0 09/22/2024 09:43 AM EDT
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
== END 2024-09-22 10:07 | disposition home or self-care (01) ==
PROVIDERS: PCP Internal Medicine; Visit Provider Physician Assistant Medical
DX: F17.210 Nicotine dependence, cigarettes, uncomplicated (principal)
CPT/HCPCS: G0296

== ENCOUNTER 2024-09-22 09:37 | Outpatient (REF) | payer BC, SELFPAY ==
--- NOTE | ~2024-09-22 | CT_ITS ---
EXAMINATION: CT LUNG SCREENING HISTORY: F17.210 - Nicotine dependence, cigarettes, uncomplicated TECHNIQUE: Low dose axial images were obtained from the sternal notch to upper abdomen without IV contrast per standard departmental protocol. Sagittal and coronal reformatted images were also obtained and reviewed. One or more of the following techniques was used for dose reduction: Automated exposure control, adjustment of the mA and/or kV according to patient size, use of iterative reconstruction technique. DLP: 75 mGy-cm COMPARISON: Correlation is made with PA and lateral views of the chest 124. FINDINGS: Lung nodules: There is a punctate nodule at the right lung apex (series 4, image 21). A punctate nodule is also noted at the left lung apex (series 4, image 34). There is an ovoid 4 x 2 mm nodule in the superior segment of the right lower lobe (series 4, image 40). There is a 3 mm calcified granuloma in the right lower lobe (series 4, image 87). A triangular shaped nodule along the right major fissure (series 4, image 91) is compatible with an intrapulmonary lymph node. There is a 5 x 3 mm nodule in the left lower lobe (series 4, image 101). There is subsegmental atelectasis versus scarring in the lingula. Emphysema: mild Coronary Calcification: none Aortic Arch Calcification: mild Potentially Significant Incidentals : none Additional Chest Findings: There is no pleural or pericardial effusion. No mediastinal or axillary lymphadenopathy is identified. Visualized upper abdomen: The visualized portions of the liver, spleen, and adrenals have an unremarkable unenhanced appearance. CT/CT lung screening IMPRESSION: No suspicious pulmonary nodules are identified. LUNG-RADS ASSESSMENT: Lung-RADS 2: Benign MANAGEMENT: Continue annual screening with LDCT in 12 months Category S: N/A Electronically signed by: Allen Torre MD 09/22/2024 10:44 AM EDT
== END 2024-09-22 09:38 | disposition home or self-care (01) ==
LOC: HO.CT 09:37
PROVIDERS: PCP Internal Medicine; Visit Provider Physician Assistant Medical
DX: Z12.2 Encounter for screening for malignant neoplasm of respiratory organs (principal); F17.210 Nicotine dependence, cigarettes, uncomplicated
CPT/HCPCS: 71271

== ENCOUNTER → 2024-09-22 09:39 | Outpatient (BNV) | payer BC, SELFPAY | PROVIDERS: PCP Internal Medicine; Visit Provider Radiology Diagnostic Radiology | DX: F17.210 Nicotine dependence, cigarettes, uncomplicated (principal) | CPT/HCPCS: 71271 ==

== ENCOUNTER → 2024-10-06 08:43 | Outpatient (BNV) | payer BC, SELFPAY | PROVIDERS: Emergency Provider Emergency Medicine; PCP Internal Medicine; Visit Provider Radiology Diagnostic Radiology | DX: R22.41 Localized swelling, mass and lump, right lower limb (principal); S99.921A Unspecified injury of right foot, initial encounter | CPT/HCPCS: 73630; 93971 ==

== ENCOUNTER 2024-10-06 09:27 | Emergency (ER) | payer BC, SELFPAY ==
--- OUTSIDE RECORDS SUMMARY | 2023-08-06 10:00 | XMS_ITS ---
Author Organization [facility] Address [address] [place] [phone] Care Team Providers Care Electronics Engineering Professor Name Role Phone Albin LEAVITT, Reggie Primary Care Provider Unavaila Allen Carpio [phone] REASON FOR VISIT Patient presents today for a colon screening Encounters Encounter Location Date Provider Diagnosis [facility] [address] [place] [phone] 08/06/2023 Allen Gill Plan Of Treatment No Information Progress Notes * KRISTY OLEAOB:[birth year] (49 yo M)Acc No.[id number]:08/06/2023 Progress Notes Patient: ENRIQUE EDWARD Provider: Vadim Gill MD :1975 A ge:47 Y S ex:Male Date:08/06/2023 Address:[address] [place], [place] [id number] Pcp:Reggie Talamantes MD Subjective: * Chief Complaints: * 1 . Patient presents today for a colon screening. * Medical History: Objective: * Vitals: Assessment: Plan: * Treatment: * * The named appointment provid er may or may not be the originator of this progress note, and it is not deemed complete until electronically signed by the appointment provider. Sign off status: Pending * Provider: Vadim Gill MD Date: 0 08/06/2023 Generated for Te franklin/Janessa/Janel on: 0 10/06/2024 11:05 AM EDT
--- NOTE | ~2024-10-06 | US_ITS ---
EXAMINATION: US TRIPLEX LOWER EXTREMITY, RIGHT CLINICAL INFORMATION: Edema, right lower extremity COMPARISON: None available. TECHNIQUE: Color-flow triplex imaging with spectral analysis and compression Doppler were performed on the right lower extremity. FINDINGS: Respiratory variation, normal compression and augmented flow are present in the interrogated right common femoral vein, superficial femoral vein, profunda femoral vein, popliteal vein and midcalf peroneal and posterior tibial venous segments . There is no Norwood's cyst. US/US venous duplex LE RT IMPRESSION: No acute deep venous thrombosis interrogated veins, right lower extremity. Negative for DVT. Electronically signed by: Wesly Baires MD 10/06/2024 11:50 AM EDT
--- NOTE | ~2024-10-06 | XR_ITS ---
EXAMINATION: XR FOOT 3 OR MORE VIEWS RIGHT HISTORY: foot injury COMPARISON: Comparison is made with the prior examination dated 06/07/2020. FINDINGS: Three views of the right foot are submitted. Osseous mineralization is normal. There is no fracture or dislocation. There is mild narrowing of the 1st MTP joint. There is a calcaneal spur at the insertion of the Achilles tendon. The soft tissues are unremarkable. XR/XR foot RT min 3V IMPRESSION: No evidence of fracture of the right foot. Electronically signed by: Allen Torre MD 10/06/2024 09:48 AM EDT
[2024-10-06 09:28] VITALS: BP 151/78; PULSE 87; RESP 16; TEMP 36.6; O2SAT 97; BMI 31.6
[2024-10-06 09:55] LABS: Hematocrit 39.8 % (42.0-52.0); Hemoglobin 14.0 g/dl (14.0-18.0); Imm Gran Abs Auto 0.07 X10*3/uL (0.00-0.03); Imm Gran Pct Auto 0.9 % (0.0-0.4); Lymphocytes Absolute Auto 1.2 X10*3/uL (1.2-4.9); MANUAL DIFF FLAG NO; Mean Corpuscular HGB Conc 35.2 g/dl (31.0-36.0); Mean Corpuscular Hemoglobin 31.8 pg (27.0-33.0); Mean Corpuscular Volume 90.5 fL (80.0-98.0); NRBC Abs Auto 0.000 X10*3/uL (0.0-0.012); NRBC Pct Auto 0.0 /100WBC (0.0-0.2); Platelet Count 233 X10*3/uL (160-400); Red Blood Count 4.40 X10*6/uL (4.60-5.80); White Blood Count 7.5 X10*3/uL (4.8-10.8)
[2024-10-06 10:00] VITALS: BP 145/70; PULSE 90; RESP 16; TEMP 36.7; O2SAT 99
[2024-10-06 10:10] LABS: Alanine Aminotransferase 28 U/L (0-40); Albumin Level 4.4 g/dL (3.5-5.0); Alkaline Phosphatase 70 U/L (39-117); Anion Gap 13 (12-20); Aspartate Amino Transferase 25 U/L (5-37); Blood Urea Nitrogen 10 mg/dL (9-16); Calcium 9.8 mg/dL (8.4-10.2); Carbon Dioxide 28 mmol/L (22-29); Chloride 102 mmol/L (96-108); Creatinine Clr Calc Pharmacy 127.6; Estimated Glomerular Filt Rate > 60; Potassium 3.9 mmol/L (3.3-5.1); Sodium 139 mmol/L (135-145); Total Protein 7.2 g/dL (6.5-8.0)
--- NOTE | 2024-10-06 10:28 | PC.NURSE ---
Lab called by this RN to double check they have enough tubes from previous lab draw. Lab the reporting they have enough blood and should be able to add on the labs at this time. Tech aware.
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
--- OUTSIDE RECORDS SUMMARY | 2024-10-06 11:06 | XMS_ITS | Data Portability ---
Author Organization [facility]TON[facility] Se[facility], [address] Address [address] [place] [address] Assessment No assessment recorded. Plan of Treatment Reminders Order Date Submit Date Provider Last Modified By Organization Details Last Modified Time Details Appointments None recorded. Lab methicilli n resistant staphyloco ccus aureus, culture, unspecifie d specimen 2022 023 [facility], [address] [place] [address], [place], [address], 3 10:06:27 Referral None recorded. Procedures None recorded. Surgeries None recorded. Imaging None recorded. Medication Orders prednisone 20 mg tablet 2022 023 [facility]/Pharmacy #[id number], [address] [place], [address], 3 14:04:11 hydroxyzin e HCl 25 mg tablet 2022 023 [facility]/Pharmacy #2071, [address] [place], [address], 3 14:04:11 prednisone 20 mg tablet 2022 023 [facility]/Pharmacy #2071, [address] [place], [address], 3 13:51:00 hydroxyzin e HCl 25 mg tablet 2022 023 [facility]/Pharmacy #2071, [address] [place], [address], 3 08:41:09 mupirocin 2 % topical ointment 2022 023 [facility]/Pharmacy #4569, [address] [place], [address], 3 09:00:56 Bactrim DS 800 mg-160 mg tablet 2022 023 [facility]/Pharmacy #3286, [address] [place], [address], 13:51:05 Patient TargetsNo targets recorded. Patient Instructions Encounter Date Encounter Id Patient Instructions Last Modified By Organization Details Last Modified Time 06/14/2022 [id number] hives: care instructions [email or web address] Not available 06/14/2022 09:00:53 Cellulitis is a [...] your doctor if you can take an xoyf-uvn-xyymlhw medicine. Not available 06/14/2022 09:00:20 06/22/2022 [id number] hives: care instructions antonio Not available 06/22/2022 08:41:03 Eczema and atopi c dermatitis is made worse with excessive water exposure. Limit water exposure (showers, hand cardiac rn, etc). Between application of any prescription creams, using OTC hand creams can be beneficial to add proper moisture to the skin. Eucerin cream is a good choice. OTC antihistamines can be taken for itching as directed. If fails to improve, consult dermatology. vijay Not available 06/22/2022 08:41:01 How can I [...] you must use them. - Use a casing material weigher, or wear rubber gloves when you wash dishes. Call office, return to UC or PCP, or go to ER if: - Persistence and worsening of symptoms even after withdrawal of irritating materials calls for medical attention. - Develop new symptoms such as fevers, chills, body aches, or feelings of illness Not available 06/22/2022 08:40:43 06/29/2022 [id number] hives: care instructions antonioBryan Not available 06/29/2022 14:04:09 Eczema and atopi c dermatitis is made worse with excessive water exposure. Limit water exposure (showers, hand cardiac rn, etc). Between application of any prescription creams, [...] you must use them. - Use a casing material weigher, or wear rubber gloves when you wash [...] screening culture NEGATI VE Not Available [facility] ([facility]) [address] [facility], [place], [address], 06/16/2022 10:06:27 Result Notes None recorded. Problems No Known Problems Procedures Surgical History Date Name Laterality Status Provider Name and Address Organization Details Recorded Time hernia repair completed ADINA MALCOLM [facility] 06/14/2022 08:25:32 Imaging Results None recorded. Procedure Notes None recorded. Medical Equipment None Reported. Allergies Allergen ID Allergen Name Allergen Category Reaction Reaction Severity Criticality Documentation Date Start Date Code Code System Note Provider Name and Address Organization Details Recorded Time 487570 Product containin g penicilli n (product) medicatio n hives Not available Not available 06/14/2022 36525 8001 SNOMED ADINA monahan [facility] 3 08:24:31 Medications Name Sig Start Date [...] in Arterial blood by Pulse oximetry Systolic And Diastolic Provider Name and Address Organization Details Last Updated DateTime 3 182.88 cm 29.8 kg/m2 00718.3 2 g 97.8 [degF] 18 /min 96 /min 97 % 97 % 143/92 mm[Hg] ADINA Fierro [facility] 3 08:28:03 Date Recorded Body height Body mass index (BMI) Body weight Oxygen saturation Oxygen saturation in Arterial blood by Pulse oximetry Heart rate Respiratory rate Body temperature Systolic And Diastolic Provider Name and Address Organization Details Last Updated DateTime 3 182.88 cm 29.8 kg/m2 94765.3 2 g 98 % 98 % 95 /min 18 /min 97.7 [degF] 153/78 mm[Hg] Alice Mcneillmeryl PA - [facility] 3 08:25:25 Date Recorded Body height Body mass index (BMI) Body weight Heart rate Oxygen saturation Oxygen saturation in Arterial blood by Pulse oximetry Respiratory rate Body temperature Systolic And Diastolic Provider Name and Address Organization Details Last Updated DateTime 3 182.88 cm 29.8 kg/m2 99351.3 2 g 86 /min 97 % 97 % 18 /min 97.2 [degF] 141/89 mm[Hg] Alice Mcneillmeryl PA - [facility] 3 13:52:17 Social History Question Answer Notes LastModified by [employer] Details LastModified Time Tobacco Smoking Status Current Every Day Smoker ADINA monahan PA - [facility] 06/14/2022 08:25:08 What Is Your Water Source? City Information not available 06/14/2022 What Is Your Heat Source? Other Information not available 06/14/2022 Have You Had Direct Contact, Or Contact During Intimacy, With Monkeypox Rash, Scabs, Or Body Fluids From A Person With Monkeypox? No Information not available 06/14/2022 How Much Tobacco Do You Smoke? 1 PPD Information not available 06/14/2022 Have You Recently Traveled Abroad? No Information not available 06/14/2022 Sex: Unknown Functional Status Question Answer Note LastModified by [employer] Details LastModified Time Do you use any illicit or recreational drugs? No Information not available 06/14/2022 Do you or have you ever used any other forms of tobacco or nicotine? No Information not available 06/14/2022 What is your level of alcohol consumption? Occasional Information not available 06/14/2022 Mental Status None recorded. Family History Relationship [...] split virus, quadrivalent, preservative 7 completed Alice Monfediyae null, PA - [facility] 06/22/2022 08:21:06 Influenza, split virus, quadrivalent, preservative 6 completed Alice Monfette null, PA - [facility] 06/22/2022 08:21:06 COVID-19 vaccine, vector-nr, rS-Ad26, PF, 0.5 mL 1 completed Alice Monfette null, PA - [facility] 06/22/2022 08:21:06 Td (adult), 5 Lf tetanus toxoid, preservative free, adsorbed 8 completed Alice Monfediyae null, PA - [facility] 06/22/2022 08:21:06 Past Encounters Encounter ID Performer Location Encounter Start Date Encounter Closed Date Diagnosis/Indication Diagnosis SNOMED-CT Code Diagnosis ICD10 Code Diagnosis Note [id number] [facility] [address] [facility] [address] [place] [address] 05/28/2016 08:11:09 05/28/2016 08:36:31 [id number] [address] [facility] [address] [place] [address] 03/06/2020 15:45:16 03/06/2020 17:44:46 [id number] [address] [place] [address] 04/09/2017 11:52:09 04/09/2017 12:54:06 [id number] [address] [facility] [address] [place] [address] 03/13/2019 09:03:55 03/13/2019 10:08:11 [id number] Lucio Diaz NP [address] [place] [address] 06/14/2022 08:12:25 06/14/2022 09:12:28 Cellulitis of external nose 01124141 J34.0 [id number] Lucio Diaz NP [address] [place] [address] 06/22/2022 08:02:48 06/22/2022 08:41:39 Eczema [id number] L30.9 [id number] Lucio Diaz NP [address] [place] [address] 06/29/2022 12:31:46 06/29/2022 14:08:16 Irritant contact dermatitis 918332977 L24.9 Health Concerns Section Related Observation LastModified by Organization Detai ls LastModified Time None Recorded Concern Status LastModified by Organization Details LastModified Time None Recorded Advance Directives Directive None Recorded Payers Insurance Date Sequence Insurance Name Policy Number Policy Glass Covered Member ID Glass Member ID Guarantor Name 06/29/2022 1 [place] [id number] Frna Allen Moquin [id number] Fran [address] Moquin 06/29/2022 1 [place] 2 [place]) Fran Allen Moquin [id number] Fran [address] Moquin 06/29/2022 2 [place] [id number] Fran S Moquin [id number] Fran S Moquin 06/29/2022 1 [place]GRAM Neris Allen Moquin [id number] Fran S Moquin 06/29/2022 1 [place] [id number] Neris Allen Moquin [id number] Fran Allen Moquin Notes Date Note Type Note Provider [...] Lucio Diaz NP [address] [place], [address], PA - [facility] 06/14/2022 09:01:57 3 text/html Rash/Skin LesionReported bypatient.source of patient informationInformation obtained [...] Factors:steroid cream Associated Symptoms:no fever; no fatigue Lucio Diaz NP [address] [place], [address], [employer] [facility] 06/22/2022 21:16:53 3 text/html Rash/Skin LesionReported bypatient.source of patient informationInformation obtained [...] no fatigue Treatment History:treated previously with prednisone. Lucio Diaz NP [address] [place], [address], PA - [facility] 06/29/2022 14:04:39
[2024-10-06 12:00] VITALS: BP 150/70; PULSE 80; RESP 16; TEMP 36.6; O2SAT 98
[2024-10-06 13:03] VITALS: BP 150/70; PULSE 80; RESP 16; TEMP 36.6; O2SAT 98
== END 2024-10-06 13:03 | disposition home or self-care (01) ==
PROVIDERS: Physician Assistant; Emergency Provider Emergency Medicine; PCP Internal Medicine
DX: B35.3 Tinea pedis (principal); L03.115 Cellulitis of right lower limb; M79.604 Pain in right leg; I10 Essential (primary) hypertension; F17.210 Nicotine dependence, cigarettes, uncomplicated
CPT/HCPCS: 36415; 73630; 80053; 85025; 85652; 86140; 93971; 99283; 99284

== ENCOUNTER 2024-10-11 14:23 | Outpatient (AMB) | payer BC, SELFPAY ==
--- OUTSIDE RECORDS SUMMARY | 2023-08-06 10:00 | XMS_ITS ---
Author Organization [facility] Address [address] [place] [phone] Care Team Providers Care Criminal Profiler Name Role Phone Albin LEAVITT, Reggie Primary Care Provider Unavaila Allen Carpio [phone] REASON FOR VISIT Patient presents today for a colon screening Encounters Encounter Location Date Provider Diagnosis [facility] [address] [place] [phone] 08/06/2023 Allen Gill Plan Of Treatment No Information Progress Notes * KRISTY OLEAOB:[birth year] (49 yo M)Acc No.[id number]:08/06/2023 Progress Notes Patient: ENRIQUE EDWARD Provider: Vadim Gill MD :1975 A ge:47 Y S ex:Male Date:08/06/2023 Address:[address] [place], [place] [id number] Pcp:Reggie Talamantes MD Subjective: * Chief Complaints: [...] 08/06/2023 Generated for Te franklin/Janessa/Janel on: 0 10/11/2024 03:04 PM EDT
[2024-10-11 14:36] VITALS: BP 130/70; BMI 33.1
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
--- OUTSIDE RECORDS SUMMARY | 2024-10-11 15:05 | XMS_ITS | Data Portability ---
Author Organization [facility], [address] Address [address] [place] [address] Assessment No assessment recorded. Plan of Treatment Reminders Order Date Submit Date Provider Last Modified By Organization Details Last Modified Time Details Appointments None recorded. Lab methicilli n resistant staphyloco ccus aureus, culture, unspecifie d specimen 2022 023 [place] [facility], [address] [place] [address], [place], [address], 3 10:06:27 Referral None recorded. Procedures None recorded. Surgeries None recorded. Imaging None recorded. Medication Orders prednisone 20 mg tablet 2022 023 [facility]armacy #[id number], [address] [place], [address], 3 14:04:11 hydroxyzin e HCl 25 mg tablet 2022 023 [facility]acy #[id number], [address] [place], [address], 3 14:04:11 prednisone 20 mg tablet 2022 023 [facility]/Pharmacy #[id number], [address] [place], [address], 3 13:51:00 hydroxyzin e HCl 25 mg tablet 2022 023 [facility]armacy #2071, [address] [place], [address], 3 08:41:09 mupirocin 2 % topical ointment 2022 023 [facility]/Pharmacy #9440, [address] [place], [address], 3 09:00:56 Bactrim DS 800 mg-160 mg tablet 2022 023 [facility] #6320, [address] [place], [address], 13:51:05 Patient TargetsNo targets recorded. Patient Instructions Encounter Date Encounter Id Patient Instructions Last Modified By Organization Details Last Modified Time 06/14/2022 [id number] hives: care instructions [email or web address] Not available 06/14/2022 [...] your doctor if you can take an hcio-rek-psnkmwp medicine. Not available 06/14/2022 09:00:20 06/22/2022 [id number] hives: care instructions antonio Not available 06/22/2022 08:41:03 Eczema and atopi c dermatitis is made worse with excessive water exposure. Limit water exposure (showers, hand head wrestling coach, etc). Between application of any prescription creams, [...] you must use them. - Use a arboriculturist, or wear rubber gloves when you wash dishes. Call office, return to UC or PCP, or go to ER if: - Persistence and worsening of symptoms even after withdrawal of irritating materials calls for medical attention. - Develop new symptoms such as fevers, chills, body aches, or feelings of illness Not available 06/22/2022 08:40:43 06/29/2022 [id number] hives: care instructions [email or web address] Not available 06/29/2022 14:04:09 Eczema and atopi c dermatitis is made worse with excessive water exposure. Limit water exposure (showers, hand head wrestling coach, etc). Between application of any prescription creams, [...] you must use them. - Use a arboriculturist, or wear rubber gloves when you wash [...] screening culture NEGATI VE Not Available [facility] [address], [place], [address], 06/16/2022 10:06:27 Result Notes None recorded. Problems No Known Problems Procedures Surgical History Date Name Laterality Status Provider Name and Address Organization Details Recorded Time hernia repair completed ADINA MALCOLM [employer] 06/14/2022 08:25:32 Imaging Results None recorded. Procedure Notes None recorded. Medical Equipment None Reported. Allergies Allergen ID Allergen Name Allergen Category Reaction Reaction Severity Criticality Documentation Date Start Date Code Code System Note Provider Name and Address Organization Details Recorded Time 506054 Product containin g penicilli n (product) medicatio n hives Not available Not available 06/14/2022 43587 [id number] SNOMED ADINA monahan [facility] 3 08:24:31 Medications Name Sig Start Date [...] Updated DateTime 3 182.88 cm 29.8 kg/m2 38445.3 2 g 97.8 [degF] 18 /min 96 /min 97 % 97 % 143/92 mm[Hg] ADINA Fierro [facility] 3 08:28:03 Date Recorded Body height Body mass index (BMI) Body weight Oxygen saturation Oxygen saturation in Arterial blood by Pulse oximetry Heart rate Respiratory rate Body temperature Systolic And Diastolic Provider Name and Address Organization Details Last Updated DateTime 3 182.88 cm 29.8 kg/m2 63475.3 2 g 98 % 98 % 95 [...] Updated DateTime 3 182.88 cm 29.8 kg/m2 76584.3 2 g 86 /min 97 % 97 % 18 /min 97.2 [degF] 141/89 mm[Hg] Alice Mcneillmeryl PA - [facility] 3 13:52:17 Social History Question Answer Notes LastModified by [email or web address] Details LastModified Time Tobacco Smoking Status Current [...] Functional Status Question Answer Note LastModified by [employer] ion Details LastModified Time Do you use [...] SNOMED-CT Code Diagnosis ICD10 Code Diagnosis Note [id number] [facility] [address] [place] [phone] 05/28/2016 08:11:09 05/28/2016 08:36:31 [id number] [address] [facility] [address] [place] [address] 03/06/2020 15:45:16 03/06/2020 17:44:46 [id number] [address] [place] [address] 04/09/2017 11:52:09 04/09/2017 12:54:06 [id number] [facility] [address] [facility] [address] [place] [phone] 03/13/2019 09:03:55 03/13/2019 10:08:11 [id number] Lucio Diaz NP [address] [place] [address] 06/14/2022 08:12:25 06/14/2022 09:12:28 Cellulitis of external nose 53254833 J34.0 [id number] Lucio Diaz NP [address] [place] [address] 06/22/2022 08:02:48 06/22/2022 08:41:39 Eczema 62750742 L30.9 [id number] Lucio Diaz NP [address] [place] [address] 06/29/2022 12:31:46 06/29/2022 14:08:16 Irritant contact dermatitis 963902490 L24.9 Health Concerns Section Related Observation LastModified by Organization Detai ls LastModified Time None Recorded Concern Status LastModified by Organization Details LastModified Time None Recorded Advance Directives Directive None Recorded Payers Insurance Date Sequence Insurance Name Policy Number Policy Glass Covered Member ID Glass Member ID Guarantor Name 06/29/2022 1 [place] [id number] Fran Allen Moquin [id number] Fran [address] Moquin 06/29/2022 1 [place] Fran Allen Moquin [id number] Fran S Moquin 06/29/2022 2 [place] [id number] Fran S Moquin [id number] Fran S Moquin 06/29/2022 1 [place] Neris Allen Moquin [id number] Fran S Moquin 06/29/2022 1 [place] [id number] Neris Allen Moquin [id number] Fran Allen Moquin Notes Date Note [...] Lucio Diaz NP [address] [place], [address], PA - [facility] 06/14/2022 09:01:57 3 [...] Lucio Diaz NP [address] [place], [address], [employer] [facility] 06/22/2022 21:16:53 3 text/html Rash/Skin [...] Lucio Diaz NP [address] [place], [address], PA - [facility] 06/29/2022 14:04:39
== END 2024-10-11 15:23 | disposition home or self-care (01) ==
LOC: HO.HMCH 14:24
PROVIDERS: PCP Internal Medicine
DX: L97.511 Non-pressure chronic ulcer of other part of right foot limited to breakdown of skin (principal); L03.90 Cellulitis, unspecified

== ENCOUNTER 2024-12-05 15:15 | Outpatient (RCR) | payer BC, SELFPAY | END 2024-12-27 16:46 | disposition home or self-care (01) | LOC: HO.WCC 15:15 | PROVIDERS: Visit Provider Surgery Surgical Oncology | DX: L97.522 Non-pressure chronic ulcer of other part of left foot with fat layer exposed (principal); L97.512 Non-pressure chronic ulcer of other part of right foot with fat layer exposed; B35.3 Tinea pedis; I10 Essential (primary) hypertension; R21 Rash and other nonspecific skin eruption; F17.210 Nicotine dependence, cigarettes, uncomplicated | CPT/HCPCS: 11042; 87102; 99203; 99214; 99215 ==